=== PATIENT | male | born 1945 | race Caucasian/White ===

== ENCOUNTER 2016-11-08 08:43 | Outpatient (CLI) | payer BC, OTHER ==
[~2016-11-08 08:43] MED LIST: GLYB1TAB3 PO
[2016-11-08 09:45] LABS: THYROID STIMULATING HORMONE 12.371 mIU/mL (0.358-3.740)
[2016-11-08 11:21] LABS: BILIRUBIN,TOTAL 0.7 mg/dL (0.2-1.0); CREATININE 0.9 mg/dL (0.6-1.3); POTASSIUM 4.7 mmol/L (3.5-5.1); TOTAL PROTEIN, SERUM 7.2 g/dL (6.4-8.2)
[2016-11-09 08:06] LABS: ESTRADIOL 14.6 pg/mL (7.6-42.6); FOLLICLE STIMULATION HORMONE 8.2 mIU/mL (1.5-12.4); LUTEINIZING HORMONE 3.8 mIU/mL (1.7-8.6); PROLACTIN 7.3 ng/mL (4.0-15.2)
== END 2016-11-08 23:59 | disposition home or self-care (01) ==
LOC: LAB 08:43
DX: E11.65 Type 2 diabetes mellitus with hyperglycemia (principal); E29.1 Testicular hypofunction; E78.5 Hyperlipidemia, unspecified; E03.9 Hypothyroidism, unspecified
CPT/HCPCS: 36415; 82670; 83001; 83002; 84146; 84403; 84443

== ENCOUNTER 2017-01-24 08:10 | Outpatient (CLI) | payer BC, OTHER ==
[2017-01-24 10:21] LABS: CREATINE KINASE, TOTAL 93 U/L (39-308)
[2017-01-24 10:33] LABS: CARBON DIOXIDE 25 mmol/L (21-32); CHLORIDE 101 mmol/L (98-107); CREATININE 0.9 mg/dL (0.6-1.3); GLUCOSE 213 mg/dL (74-106); POTASSIUM 4.2 mmol/L (3.5-5.1); UREA NITROGEN, BLOOD 24 mg/dL (7-18)
[2017-01-24 10:34] LABS: ALANINE AMINOTRANSFERASE 20 U/L (16-63); ALKALINE PHOSPHATASE 82 U/L (50-136); ASPARTATE AMINOTRANSFERASE 9 U/L (15-37); BILIRUBIN,TOTAL 0.4 mg/dL (0.2-1.0); CHOLESTEROL 224 mg/dL (<200); HDL CHOLESTEROL 34 mg/dL (40-60); TOTAL PROTEIN, SERUM 7.7 g/dL (6.4-8.2); TRIGLYCERIDES 287 MG/DL (30-150)
[2017-01-24 11:20] LABS: THYROID STIMULATING HORMONE 6.193 mIU/mL (0.358-3.740)
[2017-01-27 15:11] LABS: INSULIN 7.8 uIU/mL (2.6-24.9)
== END 2017-01-24 23:59 | disposition home or self-care (01) ==
LOC: LAB 08:10
DX: E03.9 Hypothyroidism, unspecified (principal); E11.9 Type 2 diabetes mellitus without complications; E78.5 Hyperlipidemia, unspecified; M60.9 Myositis, unspecified
CPT/HCPCS: 36415; 83525; 84443

== ENCOUNTER 2017-03-14 09:46 | Outpatient (CLI) | payer BC, OTHER ==
[2017-03-14 10:42] LABS: *BILIRUBIN,URIN NEGATIVE (NEGATIVE); *BLOOD, URINE NEGATIVE (NEGATIVE); *CLARITY,URINE CLEAR (CLEAR); *COLOR,URINE YELLOW (YELLOW); *KETONES,URINE 1+ (NEGATIVE); *PROTEIN,URINE NEGATIVE (NEGATIVE); *UROBILINOGEN,URINE 0.2 E.U./dl (NORMAL); LEUKOCYTE ESTERASE ,URINE NEGATIVE (NEGATIVE); NITRITE, URINE NEGATIVE (NEGATIVE); PH,URINE 5.5 (5.0-8.0)
[2017-03-14 10:48] LABS: ALANINE AMINOTRANSFERASE 14 U/L (16-63); ALKALINE PHOSPHATASE 90 U/L (50-136); ASPARTATE AMINOTRANSFERASE < 5 U/L (15-37); BASOPHILS % (AUTO) 0.5 % (0.0-2.0); BILIRUBIN,TOTAL 0.4 mg/dL (0.2-1.0); CARBON DIOXIDE 27 mmol/L (21-32); CHLORIDE 102 mmol/L (98-107); CHOLESTEROL 229 mg/dL (<200); EOSINOPHILS # (AUTO) 0.2 K/uL (0.0-0.7); EOSINOPHILS % (AUTO) 3.3 % (0.0-7.0); GLUCOSE 211 mg/dL (74-106); HDL CHOLESTEROL 39 mg/dL (40-60); HEMATOCRIT 44.8 % (40-50); HEMOGLOBIN 15.3 G/DL (14.0-18.0); LYMPHOCYTES # (AUTO) 1.8 K/UL (0.8-4.8); LYMPHOCYTES % (AUTO) 24.6 % (20.5-51.5); MEAN CORPUSCULAR HEMOGLOBIN 29.6 UUG (27.0-31.0); MEAN CORPUSCULAR HGB CONC 34 g/dL (32.0-37.0); MONOCYTES # (AUTO) 0.5 K/UL (0.1-1.30); MONOCYTES % (AUTO) 6.8 % (0.0-11.0); NEUTROPHILS # (AUTO) 4.9 K/UL (1.8-8.9); NEUTROPHILS % (AUTO) 64.8 % (38.5-71.5); PLATELET COUNT (AUTO) 275 K/UL (150-450); POTASSIUM 4.6 mmol/L (3.5-5.1); RED BLOOD CELL COUNT(AUTO) 5.15 MIL/UL (4.7-6.1); TOTAL PROTEIN, SERUM 8.1 g/dL (6.4-8.2); TRIGLYCERIDES 295 MG/DL (30-150); UREA NITROGEN, BLOOD 21 mg/dL (7-18); URIC ACID 6.6 mg/dL (3.5-7.2); WHITE BLOOD COUNT (AUTO) 7.4 K/UL (4.0-11.2)
[2017-03-14 11:12] LABS: CREATINE KINASE, TOTAL 74 U/L (39-308)
[2017-03-14 11:28] LABS: *RHEUMATOID FACTOR SCREEN NEGATIVE (NEGATIVE)
[2017-03-14 13:27] LABS: UGLUCOSE 1+ (NEGATIVE)
[2017-03-14 13:30] LABS: BACTERIA,URINE NONE SEEN /HPF (NONE SEEN); RBC,URINE 0-3 /HPF (0-3); SQUAMOUS EPITHELIAL CELL,UR FEW /HPF (NONE SEEN); WBC,URINE 0-3 /HPF (0-3)
== END 2017-03-14 23:59 | disposition home or self-care (01) ==
LOC: LAB 09:46
PROVIDERS: ATTEND Legal Medicine
DX: E78.00 Pure hypercholesterolemia, unspecified (principal); M62.838 Other muscle spasm; M25.50 Pain in unspecified joint
CPT/HCPCS: 36415; 82085; 84550; 85025; 85651; 86038; 86140; 86430

== ENCOUNTER 2021-01-09 14:22 | Inpatient (IN) | payer MEDICARE ==
[~2021-01-09] VITALS: Ht 182.9 cm; Wt 83.9 kg
[2021-01-09] MEDS ORDERED: ACETAMINOPHEN 325 MG TABLET PO ONE (14:45)
[2021-01-09] MEDS ORDERED: ACETAMINOPHEN 325 MG TABLET ONE (14:56)
[2021-01-09] MEDS ORDERED: IV NORMAL SALINE 1000 ML BAG IV ONE (15:00)
[2021-01-09 15:01] LABS: HEMATOCRIT 42.1 % (36.7-47.1); MEAN CORPUSCULAR HEMOGLOBIN 29.1 uug (23.8-33.4); MEAN CORPUSCULAR VOLUME 88.3 fL (73.0-96.2); PLATELET COUNT (AUTO) 190 K/uL (152-348)
[2021-01-09 15:06] LABS: *BILIRUBIN,URIN NEGATIVE (NEGATIVE); *BLOOD, URINE NEGATIVE (NEGATIVE); *CLARITY,URINE CLEAR (CLEAR); *COLOR,URINE YELLOW (YELLOW); *KETONES,URINE TRACE (NEGATIVE); *UROBILINOGEN,URINE 0.2 E.U./dl (NORMAL); LEUKOCYTE ESTERASE ,URINE NEGATIVE (NEGATIVE); NITRITE, URINE NEGATIVE (NEGATIVE); UGLUCOSE 3+ (NEGATIVE)
[2021-01-09 15:08] LABS: POTASSIUM 4.6 mmol/L (3.5-5.1)
[2021-01-09] MEDS ORDERED: ASPI81TA31 PO (15:16)
[2021-01-09] MEDS ORDERED: CARV3.12 PO (15:16)
[2021-01-09 15:20] LABS: BILIRUBIN,DIRECT 0.2 mg/dL (0.0-0.2); TOTAL PROTEIN, SERUM 8.5 g/dL (6.4-8.2)
[2021-01-09] MEDS ORDERED: FUROSEMIDE 40 MG/4 ML VIAL IV ONE (15:45)
[2021-01-09] MEDS ORDERED: FUROSEMIDE 20 MG/2 ML VIAL ONE ×2 (15:51)
--- NOTE | 2021-01-09 15:51 | NUR ---
pt on the bed, deneis any sob or cp, breathing normally, ra 97% at this time, at bedside.
[2021-01-09] MEDS ORDERED: ACETAMINOPHEN 325 MG TABLET PO PRN (16:15)
[2021-01-09] MEDS ORDERED: PIPERACILLIN SODIUM/TAZOBACTAM 3.375 G in IV DEXTROSE 5% 50 ML IV SCH ×2 (16:15→19:42)
[2021-01-09] MEDS ORDERED: ONDANSETRON 4 MG/2 ML VIAL IV PRN (16:15)
[2021-01-09] MEDS ORDERED: Z GUARD REMEDY PASTE 57 GM TUBE TOP PRN (16:15)
[2021-01-09] MEDS ORDERED: MAGNESIUM HYDROXIDE 30 ML LIQUID UDC PO PRN (16:15)
[2021-01-09] MEDS ORDERED: PIPERACILLIN/TAZOBACTAM/D5W 50 ML IV ONE ×2 (17:33→21:15)
--- NOTE | 2021-01-09 19:05 | NUR ---
TRANSFERED PT TO FLOOR IN STABLE CONDITION, PT REMAINED CALM WITH NO SIGN OF DISTRESS THE WHOLE ER STAY. FAMILY MEMBER AT [facility].
[2021-01-09 20:00] VITALS: BP 99/47
[2021-01-09] MEDS ORDERED: DEXTROSE 50% 50 ML DISP.SYRIN IV PRN (20:30)
[2021-01-09] MEDS: HYDROCODONE/APAP 5-325MG TABLET PO PRN (21:03)
[2021-01-09] MEDS: HEPARIN SODIUM,PORCINE 5,000 UNITS/ML VIAL SQ SCH (21:04)
[2021-01-09] MEDS ORDERED: VANCOMYCIN IV 200 ML ONE (21:14)
[2021-01-09] MEDS ORDERED: SWABABLE VALVE TRANSFER SET EA MC ONE (21:20)
[2021-01-09] MEDS ORDERED: IV NORMAL SALINE 250 ML IV ONE (21:20)
[2021-01-09] MEDS ORDERED: IOHEXOL 300MG/ML 100 ML INFUS..BTL ONE (21:20)
--- NOTE | 2021-01-09 21:22 | NUR ---
Admitted patient to tele unit.DX of Sepsis.Alert x4. On Ra.No s/s of distress noted.Iv on Left ac 20g patent and intact.Patient c/o lower back pain .Repositioned patient .Medicated with [place] as ordered. Patient seen and examined by Abbie Maxwell with new orders received noted and carried out. CT thoracic spine /lumbar spine with contrast consent signed by . Patient was sent down then for CT STAT.
[2021-01-09] MEDS: BLOOD SUGAR DIAGNOSTIC 1 EACH STRIP VI SCH (21:26)
[2021-01-09] MEDS: INSULIN REGULAR, HUMAN 300 UNIT/3 ML VIAL SQ PRN (21:31)
[2021-01-09] MEDS: IV NS 1000 ML 1,000 ML IV PRN (22:07)
[2021-01-09] MEDS: VANCOMYCIN IV 1,000 MG in IV DEXTROSE 5% 250 ML IV SCH (22:08)
[2021-01-09] MEDS: PIPERACILLIN SODIUM/TAZOBACTAM 3.375 G in IV DEXTROSE 5% 50 ML IV SCH (23:29)
[2021-01-10 02:18] VITALS: BP 123/59
[2021-01-10] MEDS ORDERED: PIPERACILLIN/TAZOBACTAM/D5W 50 ML IV ONE (04:26)
[2021-01-10 04:45] VITALS: BP 117/53
[2021-01-10] MEDS: PIPERACILLIN SODIUM/TAZOBACTAM 3.375 G in IV DEXTROSE 5% 50 ML IV SCH ×4 (05:16→22:17)
[2021-01-10 06:35] LABS: HEMATOCRIT 34.5 % (36.7-47.1); MEAN CORPUSCULAR HEMOGLOBIN 29.2 uug (23.8-33.4); MEAN CORPUSCULAR VOLUME 88.2 fL (73.0-96.2); PLATELET COUNT (AUTO) 148 K/uL (152-348)
[2021-01-10] MEDS: BLOOD SUGAR DIAGNOSTIC 1 EACH STRIP VI SCH ×4 (06:35→20:20)
--- NOTE | 2021-01-10 06:41 | NUR ---
Patient afebrile through out the night in no acute distress noted. Administered IV ATb as ordered. No a/r noted . VSS .All needs anticipated and met accordingly. Will endorse to oncoming shift.
[2021-01-10] MEDS: HYDROCODONE/APAP 5-325MG TABLET PO PRN ×2 (06:53→13:24)
[2021-01-10 06:56] LABS: PHOSPHOROUS 3.5 mg/dL (2.5-4.9); POTASSIUM 3.8 mmol/L (3.5-5.1)
--- NOTE | 2021-01-10 07:15 | NUR ---
received patient in bed sleeping in stable condition. no s/s of any pain, SOB or discomfort noted at this time. call light and belongings within reach. safety precautions in place. will continue to monitor.
[2021-01-10] MEDS: VANCOMYCIN IV 1,000 MG in IV DEXTROSE 5% 250 ML IV SCH ×2 (08:32→20:08)
[2021-01-10] MEDS: HEPARIN SODIUM,PORCINE 5,000 UNITS/ML VIAL SQ SCH ×2 (08:33→20:11)
[2021-01-10] MEDS: INSULIN REGULAR, HUMAN 300 UNIT/3 ML VIAL SQ PRN ×4 (08:35→20:21)
[2021-01-10 11:31] VITALS: BP 119/59
[2021-01-10] MEDS: IBUPROFEN 400 MG TABLET PO PRN ×2 (11:31→20:34)
--- NOTE | 2021-01-10 14:10 | NUR ---
TEXTED DR. RODRIGUES FOR MRI APPROVAL.
--- NOTE | 2021-01-10 17:30 | NUR ---
patient picked up by ambulance for MRI at [place], left in stable condition, vitals stable. will report to oncoming shift.
[2021-01-10 21:38] VITALS: BP 103/43
[2021-01-10] MEDS: IV NS 1000 ML 1,000 ML IV PRN (22:17)
[2021-01-11] VITALS: BP 109/46
--- NOTE | 2021-01-11 01:58 | NUR ---
[facility] called with Blood Culture results - "Gram Positive Cocci in Clusters Seen on Gram Stain"
[2021-01-11 04:00] VITALS: BP 119/61
[2021-01-11] MEDS: PIPERACILLIN SODIUM/TAZOBACTAM 3.375 G in IV DEXTROSE 5% 50 ML IV SCH ×2 (04:32→10:56)
[2021-01-11 06:43] LABS: HEMATOCRIT 34.6 % (36.7-47.1); MEAN CORPUSCULAR HEMOGLOBIN 30.1 uug (23.8-33.4); MEAN CORPUSCULAR VOLUME 87.7 fL (73.0-96.2); PLATELET COUNT (AUTO) 138 K/uL (152-348)
[2021-01-11 07:01] LABS: MAGNESIUM 2.2 mg/dL (1.8-2.4); PHOSPHOROUS 2.8 mg/dL (2.5-4.9); POTASSIUM 3.7 mmol/L (3.5-5.1)
--- NOTE | 2021-01-11 08:00 | NUR ---
RECEIVED CHANGE OF SHIFT REPORT, PT RESTING IN BED, C/O BACK PAIN AND SEPSIS. PT A/OX4, ON TELE MONITOR NSR. PT ON ROOM AIR, NO SIGNS OF DISTRESS, AMBULATORY WITH ASSIST, URINAL AT BEDSIDE. IV ACCESS ON THE LEFT FA 18G INFUSING NS AT 75. WBC 10.5, TRENDING DOWN, BED LOW AND LOCKED, CALL LIGHT WITHIN REACH, WILL CONTINUE WITH PLAN OF CARE.
[2021-01-11] MEDS: HEPARIN SODIUM,PORCINE 5,000 UNITS/ML VIAL SQ SCH ×2 (08:34→20:56)
[2021-01-11] MEDS: HYDROCODONE/APAP 5-325MG TABLET PO PRN ×3 (08:36→21:37)
[2021-01-11] MEDS: INSULIN REGULAR, HUMAN 300 UNIT/3 ML VIAL SQ PRN ×4 (08:48→20:56)
[2021-01-11] MEDS: BLOOD SUGAR DIAGNOSTIC 1 EACH STRIP VI SCH ×4 (08:49→20:55)
[2021-01-11] MEDS: IBUPROFEN 400 MG TABLET PO PRN (10:56)
[2021-01-11 11:54] VITALS: BP 112/57
[2021-01-11] MEDS: VANCOMYCIN IV 1,000 MG in IV DEXTROSE 5% 250 ML IV SCH ×2 (12:25→21:30)
[2021-01-11] MEDS ORDERED: GADOTERATE MEGLUMINE 10 MMOL/20 ML VIAL IV ONE (13:46)
[2021-01-11 16:10] VITALS: BP 106/55
--- NOTE | 2021-01-11 16:45 | NUR ---
Patient received mid-shift. Patient is in bed, alert and oriented x4 and is NSR on monitor. Patient on RA with no SOB or difficulties breathing. No acute distress noted at this time. Spouse is at bedside. Both patient and spouse awaiting pending discharge orders from Dr. Maxwell. IV on left FA is patent with IVF running at 75mL as ordered. Fall precautions in place. Call light and personal belongings within easy reach. Will continue to monitor.
[2021-01-11] MEDS ORDERED: VANC1PLA9 IV (17:19)
[2021-01-11] MEDS ORDERED: IBUP-1953 PO (17:19)
--- NOTE | 2021-01-11 17:58 | NUR ---
Patient is going to be discharged after 2200 dose of Vancomycin as per MD orders. Patient and family express understanding. Patient states he does not want his insulin with BS of 219 because he will not be eating or drinking anything for dinner. He has no c/o pain or discomforts at this time. No acute distress noted. Personal belongings and call light within easy reach. Will continue to monitor.
--- NOTE | 2021-01-11 19:03 | NUR ---
Echocardiogram cannot be done today and Dr. Maxwell informed. Dr. Maxwell states that she wants the echocardiogram done before discharge, but patient states that he will not stay and chooses to go AMA even without the 2200 Vancomycin. Patient educated on importance of getting the echocardiogram, but patient still wants to leave AMA. notified.
--- NOTE | 2021-01-11 19:30 | NUR ---
Report received. Brando RN and this RN at bedside. Patient AAO; DC plans discussed. Patient verbalized understanding. Addendum: 01/11/21 at 2220 by REGINO GIBSON RN Amended: Links added. Addendum: 01/11/21 at 2221 by REGINO GIBSON RN Amended: Links added.
--- NOTE | 2021-01-11 19:31 | NUR ---
As per Dr. Maxwell, new plan is for patient to receive echocardiogram outpatient. Patient will not be leaving AMA and original plan to receive vancomycin at 2200 and then discharge will be followed. Endorsed to oncoming PM shift.
[2021-01-11 20:05] VITALS: BP 119/57
--- NOTE | 2021-01-11 20:56 | NUR ---
Patient's and daughter Korina at bedside. Meds given. Addendum: 01/11/21 at 2221 by RGEINO GIBSON RN Amended: Links added.
--- NOTE | 2021-01-11 22:00 | NUR ---
DC instructions and packet given to patient's daughter Korina; verbalized understanding.
[2021-01-11] MEDS ORDERED: VANCOMYCIN IV 1,250 MG in IV DEXTROSE 5% 250 ML IV SCH (23:00)
--- NOTE | 2021-01-11 23:10 | NUR ---
Vancomycin completed. Patient DC home per wheelchair accompanied by and daughter.
== END 2021-01-11 23:34 | disposition home health service (06) | DRG 871 ==
LOC: ER 14:22 → TELE3 18:55
PROVIDERS: ADMIT Nurse Practitioner Acute Care; ATTEND Nurse Practitioner Acute Care
DX: A41.01 Sepsis due to Methicillin susceptible Staphylococcus aureus (principal); I50.33 Acute on chronic diastolic (congestive) heart failure; N13.30 Unspecified hydronephrosis; N39.0 Urinary tract infection, site not specified; M48.07 Spinal stenosis, lumbosacral region; M51.26 Other intervertebral disc displacement, lumbar region; K80.20 Calculus of gallbladder without cholecystitis without obstruction; E11.65 Type 2 diabetes mellitus with hyperglycemia; M51.27 Other intervertebral disc displacement, lumbosacral region; M48.26 Kissing spine, lumbar region; M48.061 Spinal stenosis, lumbar region without neurogenic claudication; D69.6 Thrombocytopenia, unspecified; M51.37 Other intervertebral disc degeneration, lumbosacral region; I11.0 Hypertensive heart disease with heart failure; B95.1 Streptococcus, group B, as the cause of diseases classified elsewhere; I25.10 Atherosclerotic heart disease of native coronary artery without angina pectoris; I45.10 Unspecified right bundle-branch block; R91.8 Other nonspecific abnormal finding of lung field; M10.9 Gout, unspecified; Z95.1 Presence of aortocoronary bypass graft; Z79.82 Long term (current) use of aspirin; Z79.84 Long term (current) use of oral hypoglycemic drugs; R00.0 Tachycardia, unspecified; Z20.822 Contact with and (suspected) exposure to COVID-19; M51.86 Other intervertebral disc disorders, lumbar region; M51.87 Other intervertebral disc disorders, lumbosacral region; N32.89 Other specified disorders of bladder
CPT/HCPCS: 36415; 70030-TC; 71045; 71250; 72158; 83605; 83735; 84100; 84153; 85025; 85730; 86140; 86803; 87040; 87077; 87086; 87806; 93005; A4663; A9575; G0378; J1644; J1815; J1940; J2543; J3370; J7030; J7050; J7060; Q9967

== ENCOUNTER 2021-02-08 20:50 | Inpatient (IN) | payer MEDICARE ==
[~2021-02-08] VITALS: Ht 185.4 cm; Wt 83.9 kg
[~2021-02-08 20:50] MED LIST changes: +ASPI81TA31 PO; +CARV3.12 PO; +IBUP-1953 PO; +VANC1PLA9 IV
--- NOTE | 2021-02-08 21:28 | NUR ---
Patient sent here by Dr Mays for eval of back pain. Current PL:08/08. A/O x4 no SOB or labored breathing, denies CP/pressure. at bedside.
--- NOTE | 2021-02-08 21:30 | NUR ---
Dr. Ramírez at bedside, MSE in progress.
[2021-02-08] MEDS ORDERED: MORPHINE SULFATE 4 MG/1 ML DISP.SYRIN IV ONE (22:45)
[2021-02-08] MEDS ORDERED: MORPHINE SULFATE 4 MG/1 ML DISP.SYRIN ONE (22:57)
[2021-02-08 22:58] LABS: HEMATOCRIT 32.6 % (36.7-47.1); MEAN CORPUSCULAR HEMOGLOBIN 28.3 uug (23.8-33.4); MEAN CORPUSCULAR VOLUME 85.1 fL (73.0-96.2); PLATELET COUNT (AUTO) 276 K/uL (152-348)
[2021-02-08 23:07] LABS: BILIRUBIN,DIRECT 0.2 mg/dL (0.0-0.2); BILIRUBIN,TOTAL 0.4 mg/dL (0.2-1.0); CREATININE 0.9 mg/dL (0.6-1.3); POTASSIUM 4.2 mmol/L (3.5-5.1); TOTAL PROTEIN, SERUM 7.7 g/dL (6.4-8.2)
--- NOTE | 2021-02-09 00:02 | NUR ---
Dr Ramírez speaking with neurological surgeon consult, Jerman Rowe.
--- NOTE | 2021-02-09 00:14 | NUR ---
Paged Epic panel carton filling machine operator. Waiting for call back.
[2021-02-09] MEDS ORDERED: HYDROMORPHONE 1 MG/1 ML DISP.SYRIN IV ONE ×3 (00:15→17:15)
--- NOTE | 2021-02-09 00:20 | NUR ---
Patient is resting comfortably in bed with eyes closed. Breathing even and unlabored. at bedside.
[2021-02-09] MEDS ORDERED: HYDROMORPHONE 1 MG/1 ML DISP.SYRIN ONE (00:39)
--- NOTE | 2021-02-09 01:22 | NUR ---
GAVE REPORT TO
--- NOTE | 2021-02-09 02:04 | NUR ---
Pt. admitted to Med Surg room 302 , under care of Dx: intractable back pain Belongs List completed
[2021-02-09] MEDS ORDERED: ONDANSETRON 4 MG/2 ML VIAL IV PRN (02:30)
[2021-02-09] MEDS ORDERED: ACETAMINOPHEN 325 MG TABLET PO PRN (02:30)
[2021-02-09] MEDS: MORPHINE SULFATE 2 MG/1 ML DISP.SYRIN IV PRN ×2 (02:35→08:38)
[2021-02-09 02:43] VITALS: BP 185/81
--- NOTE | 2021-02-09 02:53 | NUR ---
Admitted to room 302; not in any acute distress; partial orders received fr Dr Ramirez; pt prefers to sleep while sitting on chair; pain management with Morphine IV; will continue to monitor; plan of care explained.
[2021-02-09 04:24] VITALS: BP 170/87
[2021-02-09] MEDS ORDERED: TEMAZEPAM 15 MG CAPSULE PO PRN (06:15)
[2021-02-09] MEDS: hydrALAZINE HCL 25 MG TABLET PO PRN (06:57)
[2021-02-09] MEDS: PANTOPRAZOLE SODIUM 40 MG TABLET.DR PO SCH (06:57)
[2021-02-09] MEDS: CARVEDILOL 3.125 MG TABLET PO SCH ×2 (06:58→19:59)
--- NOTE | 2021-02-09 07:31 | NUR ---
received patient awake in stable condition, no SOB noted at this time patient in room air. on cont. pain management. call light within reach. will continue to monitor.
[2021-02-09 07:47] LABS: HEMATOCRIT 32.1 % (36.7-47.1); MEAN CORPUSCULAR HEMOGLOBIN 28.5 uug (23.8-33.4); MEAN CORPUSCULAR VOLUME 84.9 fL (73.0-96.2); PLATELET COUNT (AUTO) 289 K/uL (152-348)
[2021-02-09 08:11] LABS: CREATININE 0.7 mg/dL (0.6-1.3); MAGNESIUM 1.8 mg/dL (1.8-2.4); PHOSPHOROUS 3.3 mg/dL (2.5-4.9); POTASSIUM 4.4 mmol/L (3.5-5.1)
[2021-02-09] MEDS: ASPIRIN 81 MG TAB.CHEW PO SCH (08:38)
[2021-02-09] MEDS ORDERED: VANCOMYCIN IV 1,250 MG in IV DEXTROSE 5% 250 ML IV SCH (09:00)
[2021-02-09] MEDS: PIPERACILLIN SODIUM/TAZOBACTAM 3.375 G in IV DEXTROSE 5% 50 ML IV SCH ×3 (11:05→21:22)
[2021-02-09 12:00] VITALS: BP 133/55
[2021-02-09] MEDS ORDERED: PIPERACILLIN SODIUM/TAZOBACTAM 3.375 G in IV DEXTROSE 5% 50 ML IV SCH (14:00)
[2021-02-09] MEDS: VANCOMYCIN IV 1,250 MG in IV DEXTROSE 5% 250 ML IV SCH (17:09)
--- NOTE | 2021-02-09 19:08 | NUR ---
PATIENT IN BED IN STABLE CONDITION, FAMILY AT BEDSIDE. ON CONT PAIN MANAGEMENT. NO SOB, OR DISCOMFORT AT THIS TIME. CALL LIGHT WITHIN REACH, IV INTACT AND PATENT. WILL REPORT TO ONCOMING SHIFT.
[2021-02-09 20:03] VITALS: BP 147/76
[2021-02-09] MEDS ORDERED: DEXTROSE 50% 50 ML DISP.SYRIN IV PRN (21:00)
[2021-02-09] MEDS: BLOOD SUGAR DIAGNOSTIC 1 EACH STRIP VI SCH (21:21)
[2021-02-09] MEDS: HYDROMORPHONE 1 MG/1 ML DISP.SYRIN IV PRN (21:23)
[2021-02-09] MEDS: INSULIN REGULAR, HUMAN 300 UNIT/3 ML VIAL SQ PRN (21:25)
[2021-02-10] MEDS: HYDROMORPHONE 1 MG/1 ML DISP.SYRIN IV PRN ×5 (01:26→20:15)
[2021-02-10 04:03] VITALS: BP 128/57
[2021-02-10] MEDS: PIPERACILLIN SODIUM/TAZOBACTAM 3.375 G in IV DEXTROSE 5% 50 ML IV SCH ×3 (05:19→21:41)
[2021-02-10] MEDS: VANCOMYCIN IV 1,250 MG in IV DEXTROSE 5% 250 ML IV SCH ×2 (05:19→18:07)
[2021-02-10] MEDS: PANTOPRAZOLE SODIUM 40 MG TABLET.DR PO SCH (06:10)
[2021-02-10] MEDS: INSULIN REGULAR, HUMAN 300 UNIT/3 ML VIAL SQ PRN ×4 (06:42→20:11)
[2021-02-10] MEDS: BLOOD SUGAR DIAGNOSTIC 1 EACH STRIP VI SCH ×4 (06:42→20:07)
[2021-02-10 08:00] VITALS: BP 118/54
[2021-02-10 08:22] LABS: HEMATOCRIT 31.1 % (36.7-47.1); MEAN CORPUSCULAR HEMOGLOBIN 28.1 uug (23.8-33.4); MEAN CORPUSCULAR VOLUME 84.4 fL (73.0-96.2); PLATELET COUNT (AUTO) 290 K/uL (152-348)
[2021-02-10] MEDS: ASPIRIN 81 MG TAB.CHEW PO SCH (08:26)
[2021-02-10] MEDS: CARVEDILOL 3.125 MG TABLET PO SCH ×2 (08:26→20:12)
[2021-02-10 08:38] LABS: CREATININE 0.7 mg/dL (0.6-1.3); POTASSIUM 3.8 mmol/L (3.5-5.1)
[2021-02-10 11:34] VITALS: BP 150/68
[2021-02-10 15:11] VITALS: BP 115/64
[2021-02-10] MEDS ORDERED: FUROSEMIDE 40 MG/4 ML VIAL IV ONE (15:15)
--- NOTE | 2021-02-10 19:45 | NUR ---
Received pt sitting on a chair, A&0x3, verbally responsive, able to make needs known. No signs of acute distress noted. IV access intact and patent. Discussed plan of care with pt and family at bedside. Safety measures initiated, call light within reach.
[2021-02-10 20:00] VITALS: BP 133/59
[2021-02-11] MEDS: HYDROMORPHONE 1 MG/1 ML DISP.SYRIN IV PRN ×8 (00:11→23:20)
[2021-02-11 04:00] VITALS: BP 132/72
[2021-02-11 04:50] VITALS: BP 178/85
[2021-02-11] MEDS: PIPERACILLIN SODIUM/TAZOBACTAM 3.375 G in IV DEXTROSE 5% 50 ML IV SCH ×2 (05:42→13:58)
--- NOTE | 2021-02-11 06:26 | NUR ---
Pt slept intermittently, no significant change in condition noted. Tolerated due PO and IV medications, PRN pain medication administered as needed. Assistance provided when ambulating, safety measures maintained at all times. all needs attended to and met.
[2021-02-11] MEDS: BLOOD SUGAR DIAGNOSTIC 1 EACH STRIP VI SCH ×4 (06:49→20:37)
[2021-02-11] MEDS: PANTOPRAZOLE SODIUM 40 MG TABLET.DR PO SCH (06:49)
[2021-02-11 07:17] LABS: HEMATOCRIT 30.7 % (36.7-47.1); MEAN CORPUSCULAR HEMOGLOBIN 28.6 uug (23.8-33.4); MEAN CORPUSCULAR VOLUME 84.8 fL (73.0-96.2); PLATELET COUNT (AUTO) 311 K/uL (152-348)
--- NOTE | 2021-02-11 07:30 | NUR ---
Received report from LAUREN Cardenas. All questions, comments, and concerns were addressed. Received patient awake, alert and oriented x4. Sitting in bedside chair, reporting severe pain 10/10 in lower back. Patient reporting that Dilaudid 1 mg Q4 PRN IV is ineffective. Dr. Antony gave orders to change to Q3 PRN. Orders placed.
[2021-02-11 07:51] LABS: CREATININE 0.9 mg/dL (0.6-1.3); MAGNESIUM 1.9 mg/dL (1.8-2.4); PHOSPHOROUS 4.3 mg/dL (2.5-4.9); POTASSIUM 3.8 mmol/L (3.5-5.1); VANCOMYCIN,TROUGH 15.4 ug/mL (12.0-20.0)
[2021-02-11 07:58] LABS: THYROID STIMULATING HORMONE 1.56 mIU/mL (0.358-3.740)
[2021-02-11] MEDS: ASPIRIN 81 MG TAB.CHEW PO SCH (08:07)
[2021-02-11] MEDS: CARVEDILOL 3.125 MG TABLET PO SCH ×2 (08:12→20:34)
[2021-02-11] MEDS: VANCOMYCIN IV 1,250 MG in IV DEXTROSE 5% 250 ML IV SCH ×2 (08:15→20:33)
[2021-02-11 08:28] LABS: URIC ACID 3.2 mg/dL (3.5-7.2)
[2021-02-11] MEDS: INSULIN REGULAR, HUMAN 300 UNIT/3 ML VIAL SQ PRN ×3 (11:56→20:48)
[2021-02-11 12:00] VITALS: BP 115/61
--- NOTE | 2021-02-11 12:42 | NUR ---
Patient is alert and oriented. Patient is using a FWW to ambulate, unsteady gait due to severe pain in lower back. Patient administered Dilaudid 1 mg IV at 0808 and 1128 for severe pain 04/07. Patient reports that the medication is effective for about an hour then stops working. Respirations are even and unlabored, no signs of respiratory distress noted. Patient is on room air. Patient able to perform self care and ADL's independently. at bedside. Patient tolerates food and fluids. Patient is compliant with medications. Noted with Midline in MY and peripheral IV in left forearm. Both are patent. No pain, redness, swelling at IV sites. Patient receiving IV ATB therapy, tolerating well.
--- NOTE | 2021-02-11 12:48 | NUR ---
BS 217. 4 units insulin given per sliding scale. Tolerated well. Patient able to tolerate food and fluids. Provided with lunch tray.
[2021-02-11 16:00] VITALS: BP 121/63
--- NOTE | 2021-02-11 17:10 | NUR ---
BS 283. 6 units insulin given per sliding scale. Provided with dinner tray. Patient able to tolerate food and fluids.
--- NOTE | 2021-02-11 19:45 | NUR ---
PATIENT ALERT ORIENTED NO SOB NO CHEST PAIN, CONT PAIN MANAGEMENT DUE LOWER BACK PAIN, PATIENT PREFERRED TO STAY SEATED ON CHAIR TO SLEEP, STATED IT'S TO STAY LYING DOWN, IT CAUSE MORE PAIN, AND ITS HARD FOR HIM TO GET OUT OF BED, V/S STABLE, FAMILY AT BEDSIDE. CONT TO MONITOR.
[2021-02-11 20:00] VITALS: BP 134/62
[2021-02-11] MEDS: IV 0.9% SODIUM CHLORID+ 20 KCL 1,000 ML IV PRN (21:37)
[2021-02-11] MEDS: CEFTRIAXONE 2 G in IV DEXTROSE 5% 100 ML IV SCH (22:26)
[2021-02-12] MEDS: HYDROMORPHONE 1 MG/1 ML DISP.SYRIN IV PRN ×5 (02:35→14:31)
[2021-02-12 04:06] VITALS: BP 149/77
--- NOTE | 2021-02-12 05:48 | NUR ---
PATIENT ALERT ORIENTED, CONT ON PAIN MANAGEMENT DUE BACK PAIN, USES URINAL FOR URINATION, OR GOES TO TOILET WITH ASSIST FOR ELIMINATIONS, V/S STABLE, CONT TO MONITOR.
[2021-02-12] MEDS: PANTOPRAZOLE SODIUM 40 MG TABLET.DR PO SCH (06:29)
[2021-02-12] MEDS: BLOOD SUGAR DIAGNOSTIC 1 EACH STRIP VI SCH ×4 (06:30→20:41)
[2021-02-12] MEDS: INSULIN REGULAR, HUMAN 300 UNIT/3 ML VIAL SQ PRN ×4 (08:18→20:49)
--- NOTE | 2021-02-12 08:27 | NUR ---
RECEIVED PATIENT SITTING UP ON TAT THE EDGE OF THE BED AWAKE ALERT AND ORIENTED WITH IVF IN PROGRESS ORDERED WITH NO S/S OF INFILTERATION ON SITE ON ROOM AIR WITH NO SHORTNESS OF BREATH CALL LIGHTS AND PERSONAL BELONGINGS ARE WITHIN EASY REACH MADE COMFORTABLE WILL CONTINUE TO OBSERVE.
[2021-02-12] MEDS: ASPIRIN 81 MG TAB.CHEW PO SCH (09:20)
[2021-02-12] MEDS: VANCOMYCIN IV 1,250 MG in IV DEXTROSE 5% 250 ML IV SCH (09:21)
[2021-02-12] MEDS: CARVEDILOL 3.125 MG TABLET PO SCH ×2 (09:21→20:41)
[2021-02-12 10:56] VITALS: BP 127/64
--- NOTE | 2021-02-12 11:40 | NUR ---
PATIENT SEEN BY DR COOK NEURO SURGEON AT THE BEDSIDE AND SPOKE WITH PATIENT AND HIS EXPLAINED THAT HE WILL BE OPERATING SPINAL SURGERY ON THE PATIENT TOMORROW AND HE STATED WILL PUT IN ORDERS.PATIENT AND HIS EXPRESSED UNDERSTANDING OF THE PROPOSED SURGERY.
--- NOTE | 2021-02-12 12:30 | NUR ---
PATIENT SEEN AND EXAMINED BY KATJA LOZANO [facility] PROVIDER WITH NO NEW ORDERS AT THIS TIME.
--- NOTE | 2021-02-12 13:09 | NUR ---
ECHO COMPLETED ORDERED AND ITS 50-55 PERCENT EF.
--- NOTE | 2021-02-12 15:07 | NUR ---
SITTING UP ON THE CHAIR IN HIS ROOM DILAUDID WAS ADMINISTERED AT 1431 AND HE STATED HELPFUL.
--- NOTE | 2021-02-12 16:45 | NUR ---
PATIENT COMPLAINING OF SEVERE PAIN STATED THAT DILAUDID ORDERED WAS NOT EFFECTIVE STATED THAT HE WAS TAKING PERCOCET AT HOME SPOKE WITH KATJA Caro WITH NEW ORDERS.
[2021-02-12] MEDS: OXYCODONE/APAP 5-325 MG TABLET PO SCH ×2 (16:50→21:00)
[2021-02-12] MEDS: HYDROMORPHONE 2 MG/1 ML DISP.SYRIN IV PRN ×3 (17:23→23:20)
--- NOTE | 2021-02-12 18:15 | NUR ---
PATIENT IS RESTING SITTING UP ON THE CHAIR STATED PAIN MEDICATION IS EFFECTIVE ORDERED MADE COMFORTABLE WILL CONTINUE TO OBSERVE.
--- NOTE | 2021-02-12 18:45 | NUR ---
PRE OP TEACHING PATIENT INSTRUCTED ON BEING NOTHING BY MOUTH AFTER MID NIGHT WILL NEED EKG DONE TOMORROW AND THE NEWSPAPER OR PERIODICAL EDITOR WILL SEE HIM TOMORROW AND WILL REVIEW THE ECHO AND THE EKG FOR CARDIAC CLEARANCE FOR SURGERY AND HE EXPRESSED UNDERSTANDING.
[2021-02-12 20:00] VITALS: BP 137/61
[2021-02-12] MEDS: IV 0.9% SODIUM CHLORID+ 20 KCL 1,000 ML IV PRN (20:39)
[2021-02-12] MEDS: CEFTRIAXONE 2 G in IV DEXTROSE 5% 100 ML IV SCH (20:40)
[2021-02-12] MEDS ORDERED: INSULIN REGULAR, HUMAN 300 UNIT/3 ML VIAL SQ PRN (23:45)
[2021-02-12] MEDS ORDERED: DEXTROSE 50% 50 ML DISP.SYRIN IV PRN (23:45)
--- NOTE | 2021-02-13 | NUR ---
Pt rested in between care; pain management with dilaudid; assisted with needs; family at bedside; instructed to be NPO fr midnight; report given to Nurse Peterson who will assume care;
--- NOTE | 2021-02-13 02:26 | NUR ---
RECD PT IN BED,RESTING QUIETLY. NO ACUTE DISTRESS NOTED.NPO MAINTAINED AND OBSERVED, FOR LAMINECTOMY IN AM, CONSENT WILL BE SIGNED IN AM.
[2021-02-13] MEDS: HYDROMORPHONE 2 MG/1 ML DISP.SYRIN IV PRN ×5 (03:56→23:51)
--- NOTE | 2021-02-13 03:56 | NUR ---
MEDICATED WITH DILAUDID 2 MG IV FOR BACK PAIN,RELIEF AFFORDED.
[2021-02-13 05:11] VITALS: BP 142/77
[2021-02-13] MEDS: BLOOD SUGAR DIAGNOSTIC 1 EACH STRIP VI SCH ×4 (06:27→20:19)
[2021-02-13 06:53] LABS: CREATININE 0.8 mg/dL (0.6-1.3); POTASSIUM 4.1 mmol/L (3.5-5.1)
[2021-02-13] MEDS: PANTOPRAZOLE SODIUM 40 MG TABLET.DR PO SCH (07:30)
--- NOTE | 2021-02-13 08:00 | NUR ---
PT SITTING IN CHAIR RELAXING. PT A/OX4, ON ROOM AIR, NO SIGNS OF DISTRESS, REPORTS PAIN 10/10, MEDICATION GIVEN ORDERED. PT IS NPO PENDING SURGERY, CONSENT FORM SIGNED AND WITNESSED. PT HAS IV ON THE LEFT AC SALINE LOCK, AND MIDLINE ON THE RIGHT UPPER ARM. PT TO BE PICKED UP AT 1030 FOR SURGERY. WILL CONTINUE TO MONITOR.
[2021-02-13 08:05] VITALS: BP 149/71
[2021-02-13] MEDS: CARVEDILOL 3.125 MG TABLET PO SCH ×2 (08:22→20:12)
[2021-02-13] MEDS: ASPIRIN 81 MG TAB.CHEW PO SCH (08:31)
[2021-02-13] MEDS: OXYCODONE/APAP 5-325 MG TABLET PO SCH ×2 (08:31→20:11)
[2021-02-13 09:09] LABS: HEMATOCRIT 32.4 % (36.7-47.1); MEAN CORPUSCULAR HEMOGLOBIN 28.8 uug (23.8-33.4); MEAN CORPUSCULAR VOLUME 84.5 fL (73.0-96.2); PLATELET COUNT (AUTO) 363 K/uL (152-348)
--- NOTE | 2021-02-13 10:50 | NUR ---
PT WENT DOWN FOR SURGERY.
[2021-02-13] MEDS ORDERED: FENTANYL CITRATE 250 MCG/5 ML AMPUL ONE (10:56)
[2021-02-13] MEDS ORDERED: MIDAZOLAM HCL 2 MG/2 ML VIAL ONE (10:56)
[2021-02-13] MEDS ORDERED: ROCURONIUM BROMIDE 50 MG/5 ML VIAL ONE (10:57)
[2021-02-13] MEDS ORDERED: HYDROMORPHONE 2 MG/1 ML DISP.SYRIN ONE (10:57)
[2021-02-13] MEDS ORDERED: LIDOCAINE 1%-EPI 1:100,000 20 ML VIAL ONE (11:25)
[2021-02-13] MEDS ORDERED: ONDANSETRON 4 MG/2 ML VIAL IV ONE (13:06)
[2021-02-13] MEDS ORDERED: CEFAZOLIN 1 G VIAL IV ONE (13:06)
[2021-02-13] MEDS ORDERED: GLYCOPYRROLATE 0.2 MG/ML VIAL IV ONE (13:06)
[2021-02-13] MEDS ORDERED: NEOSTIGMINE METHYLSULFATE 10 MG/10 ML VIAL IV ONE (13:06)
[2021-02-13] MEDS ORDERED: PROPOFOL 200 MG/20 ML BOTTLE IV ONE (13:06)
[2021-02-13] MEDS ORDERED: SEVOFLURANE 250 ML BOTTLE IH ONE (13:06)
[2021-02-13] MEDS ORDERED: METOCLOPRAMIDE HCL 10 MG/2 ML VIAL IV ONE (13:06)
[2021-02-13] MEDS ORDERED: HYDROMORPHONE 1 MG/1 ML DISP.SYRIN ONE (13:51)
[2021-02-13] MEDS ORDERED: ONDANSETRON 4 MG/2 ML VIAL ONE (13:51)
[2021-02-13] MEDS ORDERED: FENTANYL CITRATE 100 MCG/2 ML AMPUL ONE (14:37)
--- NOTE | 2021-02-13 15:20 | NUR ---
PT BACK FROM SURGERY, ORDERS TO RESUME REGULAR DIET, AND RAISE HOB TOLERATED. PT REPORTS PAIN ON THE LOWER LEGS, PEDAL PULSES FOUND VIA DOPPLER PER OR NURSE. WILL CONTINUE TO MONITOR.
[2021-02-13 15:23] VITALS: BP 168/80
[2021-02-13] MEDS ORDERED: DEXTROSE 50% 50 ML DISP.SYRIN IV PRN (16:14)
[2021-02-13] MEDS: INSULIN REGULAR, HUMAN 300 UNIT/3 ML VIAL SQ PRN ×2 (17:19→20:21)
[2021-02-13 20:00] VITALS: BP 164/74
[2021-02-13] MEDS: CEFTRIAXONE 2 G in IV DEXTROSE 5% 100 ML IV SCH (20:11)
[2021-02-13] MEDS: IV 0.9% SODIUM CHLORID+ 20 KCL 1,000 ML IV PRN (21:52)
[2021-02-13] MEDS ORDERED: MAGNESIUM HYDROXIDE 30 ML LIQUID UDC PO PRN (22:00)
--- NOTE | 2021-02-13 22:05 | NUR ---
Pt informed this nurse that he was unable to urinate since after his surgery today. Bladder scan done and 1367cc was found. Sujey Rivera notified with orders for indwelling catheter at this time. Patient tolerated procedure well. Garces in place and draining clear yellow urine.
--- NOTE | 2021-02-14 00:46 | NUR ---
Pt wanted chen removed.Educated patient on importance of chen at this time due to him retaining urine. Pt still requested for chen to be removed. Catheter removed with no complications. Will continue to monitor urine output. Dr. Reeves notified.
--- NOTE | 2021-02-14 00:58 | NUR ---
Pt stated he has not had a bowel movement in 5 days. Got orders for prn MOM and scheduled Miralax. Pt stated that he will wait till tomorrow to take the medication.
[2021-02-14] MEDS: HYDROMORPHONE 2 MG/1 ML DISP.SYRIN IV PRN ×3 (03:07→10:24)
[2021-02-14 04:00] VITALS: BP 146/58
--- NOTE | 2021-02-14 05:16 | NUR ---
Pt slept intermittently throughout the night. Pain controlled with Dilaudid, tolerated well. Bladder scan done again because patient reported not being able to urinate. 470cc found. Pt informed that we may have to place another catheter, but he is declining at this time. Dr. Reeves notified with no new orders at this time.
--- NOTE | 2021-02-14 05:49 | NUR ---
Received orders from Dr. Reeves to straight cath for over 300cc
[2021-02-14] MEDS: PANTOPRAZOLE SODIUM 40 MG TABLET.DR PO SCH (06:04)
[2021-02-14 06:14] LABS: HEMATOCRIT 32.3 % (36.7-47.1); MEAN CORPUSCULAR HEMOGLOBIN 27.7 uug (23.8-33.4); MEAN CORPUSCULAR VOLUME 84.5 fL (73.0-96.2); PLATELET COUNT (AUTO) 361 K/uL (152-348)
[2021-02-14 06:16] LABS: CREATININE 0.8 mg/dL (0.6-1.3); POTASSIUM 4.3 mmol/L (3.5-5.1)
[2021-02-14] MEDS: BLOOD SUGAR DIAGNOSTIC 1 EACH STRIP VI SCH ×4 (06:47→20:42)
[2021-02-14] MEDS: MIRALAX 17 GM POWD.PACK PO SCH (08:34)
[2021-02-14] MEDS: OXYCODONE/APAP 5-325 MG TABLET PO SCH (08:34)
[2021-02-14] MEDS: ASPIRIN 81 MG TAB.CHEW PO SCH (08:35)
[2021-02-14] MEDS: CARVEDILOL 3.125 MG TABLET PO SCH ×2 (08:35→20:33)
[2021-02-14] MEDS: MAGNESIUM HYDROXIDE 30 ML LIQUID UDC PO PRN (08:35)
[2021-02-14] MEDS: INSULIN REGULAR, HUMAN 300 UNIT/3 ML VIAL SQ PRN ×3 (10:57→20:43)
[2021-02-14 11:20] VITALS: BP 119/56
[2021-02-14 15:25] VITALS: BP 122/87
--- NOTE | 2021-02-14 16:08 | NUR ---
SPOKE TO SURGEON ON THE PHONE, ORDERS CARRIED OUT ORDERED.
[2021-02-14] MEDS ORDERED: HYDROMORPHONE HCL 2 MG TABLET PO PRN (16:30)
[2021-02-14] MEDS: KETOROLAC TROMETHAMINE 15 MG INJ IVP SCH (17:19)
--- NOTE | 2021-02-14 17:52 | NUR ---
bladder scan performed, straight cath performed, 1000ml urine output.
[2021-02-14] MEDS ORDERED: KETOROLAC TROMETHAMINE 10 MG TABLET PO SCH (18:00)
--- NOTE | 2021-02-14 19:07 | NUR ---
chen inserted, pain meds adjusted
--- NOTE | 2021-02-14 19:32 | NUR ---
alert, oriented x4, no acute distress noted, report given to oncoming nurse
[2021-02-14 20:00] VITALS: BP 116/62
[2021-02-14] MEDS: CEFTRIAXONE 2 G in IV DEXTROSE 5% 100 ML IV SCH (20:33)
[2021-02-14] MEDS: HYDROMORPHONE 1 MG/1 ML DISP.SYRIN IV PRN (20:34)
[2021-02-14] MEDS: CYCLOBENZAPRINE HCL 10 MG TABLET PO SCH (21:37)
[2021-02-15] MEDS: KETOROLAC TROMETHAMINE 15 MG INJ IVP SCH ×4 (00:09→17:35)
[2021-02-15] MEDS: HYDROMORPHONE 1 MG/1 ML DISP.SYRIN IV PRN ×2 (02:05→08:23)
[2021-02-15 04:00] VITALS: BP 115/61
[2021-02-15] MEDS: PANTOPRAZOLE SODIUM 40 MG TABLET.DR PO SCH (06:25)
[2021-02-15] MEDS: CYCLOBENZAPRINE HCL 10 MG TABLET PO SCH ×2 (06:25→14:10)
[2021-02-15 06:26] LABS: MEAN CORPUSCULAR HEMOGLOBIN 28.2 uug (23.8-33.4); MEAN CORPUSCULAR VOLUME 83.2 fL (73.0-96.2); PLATELET COUNT (AUTO) 287 K/uL (152-348)
[2021-02-15] MEDS: BLOOD SUGAR DIAGNOSTIC 1 EACH STRIP VI SCH ×4 (06:35→21:09)
[2021-02-15 06:43] LABS: CREATININE 0.8 mg/dL (0.6-1.3); POTASSIUM 4.2 mmol/L (3.5-5.1)
--- NOTE | 2021-02-15 06:59 | NUR ---
Slept throughout the night. Garces intact and draining salome colored urine. C/o back pain, relieved by Dilaudid. Denies SOB. Able to make needs known. Noticed some swelling in MY midline. New IV access started on patient, tolerated well. Will endorse to day shift.
--- NOTE | 2021-02-15 07:30 | NUR ---
Patient received in bed with eyes closed, but easily arousable. Patient on RA with no SOB or difficulties breathing. No acute distress noted at this time. Garces is draining clear salome urine via gravity at this time. Right FA IV patent with no redness or swelling noted at this time. MY midline is patent, but some swelling noted below. Call light and personal belongings within easy reach. Will continue to monitor.
[2021-02-15] MEDS: CARVEDILOL 3.125 MG TABLET PO SCH ×2 (08:23→20:59)
[2021-02-15] MEDS: MIRALAX 17 GM POWD.PACK PO SCH (08:23)
[2021-02-15] MEDS: INSULIN REGULAR, HUMAN 300 UNIT/3 ML VIAL SQ PRN ×4 (08:25→21:13)
--- NOTE | 2021-02-15 11:14 | NUR ---
CALLED AND LEFT MESSAGE WITH DR. COOK'S CEO & BOARD DIRECTOR TO SPECIFY THE TYPE OF BACK BRACE HE WANTS ORDERED.
[2021-02-15 12:34] VITALS: BP 122/56
[2021-02-15] MEDS ORDERED: HYDROCODONE/APAP 10-325 MG TABLET PO PRN (13:15)
[2021-02-15] MEDS ORDERED: KETOROLAC TROMETHAMINE 30 MG INJ IVP ONE (13:15)
--- NOTE | 2021-02-15 14:00 | NUR ---
Clarified order for back brace: TLSO and ordered. Just need to wait for it to arrive.
[2021-02-15] MEDS: GABAPENTIN 100 MG CAPSULE PO SCH ×2 (14:10→17:35)
[2021-02-15] MEDS ORDERED: DIAZEPAM 10 MG/2 ML DISP.SYRIN IV PRN (14:30)
[2021-02-15] MEDS: HYDROMORPHONE 2 MG/1 ML DISP.SYRIN IV PRN (14:32)
[2021-02-15] MEDS ORDERED: DIAZEPAM 5 MG TABLET PO PRN (14:45)
[2021-02-15 15:59] VITALS: BP 138/56
[2021-02-15] MEDS ORDERED: IV NS 1000 ML 1,000 ML IV PRN (17:30)
[2021-02-15 20:00] VITALS: BP 143/69
--- NOTE | 2021-02-15 20:38 | NUR ---
[facility] liner here to insert Mid Line for the patient. Addendum: 02/15/21 at 2038 by KRUPA AJ RN wrong patient
[2021-02-15] MEDS: CEFTRIAXONE 2 G in IV DEXTROSE 5% 100 ML IV SCH (20:59)
[2021-02-16] MEDS: KETOROLAC TROMETHAMINE 15 MG INJ IVP SCH ×4 (01:06→17:07)
[2021-02-16] MEDS: CYCLOBENZAPRINE HCL 10 MG TABLET PO SCH ×4 (01:06→21:11)
[2021-02-16 04:05] VITALS: BP 147/69
[2021-02-16] MEDS: HYDROMORPHONE 2 MG/1 ML DISP.SYRIN IV PRN ×2 (04:08→12:34)
[2021-02-16] MEDS: PANTOPRAZOLE SODIUM 40 MG TABLET.DR PO SCH (06:22)
[2021-02-16] MEDS: BLOOD SUGAR DIAGNOSTIC 1 EACH STRIP VI SCH ×4 (06:25→20:29)
[2021-02-16 06:53] LABS: CREATININE 0.8 mg/dL (0.6-1.3); POTASSIUM 4.3 mmol/L (3.5-5.1)
[2021-02-16 07:04] LABS: HEMATOCRIT 28.3 % (36.7-47.1); MEAN CORPUSCULAR HEMOGLOBIN 27.8 uug (23.8-33.4); MEAN CORPUSCULAR VOLUME 83.4 fL (73.0-96.2); PLATELET COUNT (AUTO) 308 K/uL (152-348)
--- NOTE | 2021-02-16 07:30 | NUR ---
Patient received in bed with eyes closed, but easily arousable. Patient on RA with no SOB or difficulties breathing. No acute distress noted at this time. Garces is draining clear salome urine via gravity at this time. Right FA IV patent with no redness or swelling noted at this time. MY midline is patent, but some swelling noted below. Still awaiting back brace, which was ordered yesterday. Call light and personal belongings within easy reach. Will continue to monitor.
--- NOTE | 2021-02-16 08:00 | NUR ---
Back brace at bedside. Patient states he would like to put it on when physical therapy comes. Does not want it at this time.
[2021-02-16 08:23] VITALS: BP 138/74
[2021-02-16] MEDS: GABAPENTIN 100 MG CAPSULE PO SCH ×3 (08:29→17:06)
[2021-02-16] MEDS: CARVEDILOL 3.125 MG TABLET PO SCH ×2 (08:29→20:34)
[2021-02-16] MEDS: MIRALAX 17 GM POWD.PACK PO SCH (08:29)
[2021-02-16] MEDS: INSULIN REGULAR, HUMAN 300 UNIT/3 ML VIAL SQ PRN ×4 (08:30→20:33)
[2021-02-16] MEDS ORDERED: ASPIRIN 81 MG TAB.CHEW PO SCH (09:00)
--- NOTE | 2021-02-16 10:16 | NUR ---
IVF NOW RUNNING AT 50ML/H. PATIENT'S AND SON AT BEDSIDE.
--- NOTE | 2021-02-16 11:06 | NUR ---
D/C'ed IVF as ordered at this time. Will continue to monitor.
[2021-02-16 11:26] VITALS: BP 167/83
--- NOTE | 2021-02-16 13:30 | NUR ---
Midline nurse at bedside to check slight swelling below right UA midline. As per midline nurse, midline is patent and good to use.
[2021-02-16 15:16] VITALS: BP 154/72
[2021-02-16 20:00] VITALS: BP 129/60
[2021-02-16] MEDS: MAGNESIUM HYDROXIDE 30 ML LIQUID UDC PO PRN (20:35)
[2021-02-16] MEDS: CEFTRIAXONE 2 G in IV DEXTROSE 5% 100 ML IV SCH (20:35)
--- NOTE | 2021-02-16 20:55 | NUR ---
Received pt resting in bed. AAO x4. and son at bedside. No acute distress noted. Denies pain/ discomfort at this time. Blood sugar 215, insulin coverage given as per sliding scale. Garces catheter draining well with yellow colored urine. MY midline, patent and intact. Safety measures maintained. Call light within reach. Will continue to monitor.
[2021-02-16] MEDS: FINASTERIDE 5 MG TABLET PO SCH (22:12)
[2021-02-16] MEDS: TAMSULOSIN HCL 0.4 MG CAP.SR.24H PO SCH (22:12)
[2021-02-17] MEDS: KETOROLAC TROMETHAMINE 15 MG INJ IVP SCH ×4 (00:06→21:55)
[2021-02-17 04:00] VITALS: BP 122/77
[2021-02-17] MEDS: CYCLOBENZAPRINE HCL 10 MG TABLET PO SCH ×3 (05:00→21:55)
[2021-02-17] MEDS: PANTOPRAZOLE SODIUM 40 MG TABLET.DR PO SCH (06:01)
[2021-02-17] MEDS: BLOOD SUGAR DIAGNOSTIC 1 EACH STRIP VI SCH ×4 (06:31→22:07)
[2021-02-17 06:39] LABS: HEMATOCRIT 30.3 % (36.7-47.1); MEAN CORPUSCULAR VOLUME 83.8 fL (73.0-96.2); PLATELET COUNT (AUTO) 330 K/uL (152-348)
[2021-02-17 07:09] LABS: CREATININE 0.9 mg/dL (0.6-1.3); POTASSIUM 4.6 mmol/L (3.5-5.1)
--- NOTE | 2021-02-17 07:30 | NUR ---
Received in bed awake, alert and oriented x2. No respiratory distress noted. Denies pain. Iv intact. Bed low and locked. Safety measures in place. Kept comfortable. Will continue to monitor.
[2021-02-17] MEDS: INSULIN REGULAR, HUMAN 300 UNIT/3 ML VIAL SQ PRN ×4 (07:42→22:02)
[2021-02-17] MEDS: CARVEDILOL 3.125 MG TABLET PO SCH ×2 (09:02→21:55)
[2021-02-17] MEDS: MIRALAX 17 GM POWD.PACK PO SCH (09:02)
[2021-02-17] MEDS: FINASTERIDE 5 MG TABLET PO SCH (09:02)
[2021-02-17] MEDS: GABAPENTIN 100 MG CAPSULE PO SCH ×3 (09:02→17:13)
--- NOTE | 2021-02-17 10:41 | NUR ---
Patient wants to go to the bathroom. Tried to assist patient but still c/o pain and has difficulty moving left leg. Given bed arenas instead and will try to make bm today. Family at bedside and aware.
--- NOTE | 2021-02-17 11:30 | NUR ---
No bm. Said he'll try again later.
[2021-02-17 11:58] VITALS: BP 151/79
--- NOTE | 2021-02-17 12:16 | NUR ---
Patient sleeping comfortably. at bedside requested not to give Toradol at this time. Per , patient didn't sleep much last night and asked where she was. He is comfortable. Breathing even and non labored. No sob noted. Will hold pain medication for now.
--- NOTE | 2021-02-17 13:24 | NUR ---
Checked on patient still sleeping comfortably. Family at bedside. Per son his dad woke up for a little bit and his hand was twitching a little said his leg hurt then went back to sleep. Informed BRICK EXTRUDER OPERATOR Miguel of hand twitching episode.
[2021-02-17] MEDS ORDERED: LACTULOSE 20 G/30 ML LIQUID UDC PO PRN (14:00)
--- NOTE | 2021-02-17 14:00 | NUR ---
FEMI Rivera spoke with the patient and the family at bedside.
--- NOTE | 2021-02-17 15:10 | NUR ---
Patient appears drowsy. Wakes up for a few minutes but goes back to sleep. Refused noon meds.
[2021-02-17 16:00] VITALS: BP 143/68
--- NOTE | 2021-02-17 17:00 | NUR ---
Provided bed arenas. Still no bm.
--- NOTE | 2021-02-17 18:31 | NUR ---
Per C ENGINEER Miguel she contacted neurosurgeon Dr. Gracia to come see pt juma.
--- NOTE | 2021-02-17 18:54 | NUR ---
Alert and oriented more conversant with family at bedside. No respiratory distress. FC intact draining yellow urine. No bm today. Needs attended. Safety maintained. Call light kept within reach.
--- NOTE | 2021-02-17 19:30 | NUR ---
RECEIVED PT AWAKE, ALERT AND ORIENTEDX4. PT IN NO ACUTE DISTRESS. IV INTACT. PAUL CATHETER INTACT. FAMILY AT BEDSIDE. SAFETY AND COMFORT PROVIDED. WILL CONTINUE TO MONITOR.
[2021-02-17 20:00] VITALS: BP 162/78
[2021-02-17] MEDS: CEFTRIAXONE 2 G in IV DEXTROSE 5% 100 ML IV SCH (21:54)
[2021-02-17] MEDS: TAMSULOSIN HCL 0.4 MG CAP.SR.24H PO SCH (21:54)
[2021-02-17 22:49] VITALS: BP 145/59
[2021-02-18 04:00] VITALS: BP 160/75
[2021-02-18] MEDS: CYCLOBENZAPRINE HCL 10 MG TABLET PO SCH ×2 (05:55→13:10)
[2021-02-18] MEDS: KETOROLAC TROMETHAMINE 15 MG INJ IVP SCH ×3 (05:55→14:00)
[2021-02-18] MEDS: PANTOPRAZOLE SODIUM 40 MG TABLET.DR PO SCH (06:02)
--- NOTE | 2021-02-18 06:19 | NUR ---
PT SLEPT INTERMITTENTLY. PT IN NO ACUTE DISTRESS. PRESCRIBED MEDICATION GIVEN AND PT TOLERATED IT WELL. IV INTACT. PAUL INTACT AND DRAINING WELL. BLOOD SUGAR WAS 147 AND 147 . SAFETY AND COMFORT PROVIDED. ALL NEEDS ARE MET. WILL ENDORSE TO INCOMING NURSE FOR CONTINUITY OF CARE.
[2021-02-18 06:33] LABS: HEMATOCRIT 30.5 % (36.7-47.1); MEAN CORPUSCULAR HEMOGLOBIN 28.4 uug (23.8-33.4); MEAN CORPUSCULAR VOLUME 83.1 fL (73.0-96.2); PLATELET COUNT (AUTO) 326 K/uL (152-348)
[2021-02-18] MEDS: BLOOD SUGAR DIAGNOSTIC 1 EACH STRIP VI SCH ×3 (06:34→16:28)
[2021-02-18 06:43] LABS: CREATININE 0.8 mg/dL (0.6-1.3); POTASSIUM 3.8 mmol/L (3.5-5.1)
[2021-02-18] MEDS: INSULIN REGULAR, HUMAN 300 UNIT/3 ML VIAL SQ PRN ×3 (07:41→16:27)
--- NOTE | 2021-02-18 08:48 | NUR ---
With PT for eval. at bedside.
--- NOTE | 2021-02-18 09:09 | NUR ---
Per PT patient stood up, did marching exercises but not enough to go to the bathroom yet.
[2021-02-18] MEDS: MIRALAX 17 GM POWD.PACK PO SCH (09:18)
[2021-02-18] MEDS: GABAPENTIN 100 MG CAPSULE PO SCH ×3 (09:19→17:08)
[2021-02-18] MEDS: FINASTERIDE 5 MG TABLET PO SCH (09:19)
[2021-02-18] MEDS: CARVEDILOL 3.125 MG TABLET PO SCH (09:19)
[2021-02-18 11:23] VITALS: BP 169/77
[2021-02-18] MEDS: hydrALAZINE HCL 25 MG TABLET PO PRN (11:45)
--- NOTE | 2021-02-18 11:52 | NUR ---
Hydralazine prn given for bp 169/77 p81. Continue to monitor.
[2021-02-18] MEDS ORDERED: HYDR-3980 PO (14:46)
[2021-02-18] MEDS ORDERED: INSU100V28 SQ (14:46)
[2021-02-18] MEDS ORDERED: Blood Sugar Diagnostic VI (14:46)
[2021-02-18] MEDS ORDERED: CYCL10TA9 PO (14:46)
[2021-02-18] MEDS ORDERED: FINA5TAB11 PO ×2 (14:46→20:44)
[2021-02-18] MEDS ORDERED: LACT10SO7 PO (14:46)
[2021-02-18] MEDS ORDERED: CARV6.252 PO (14:46)
[2021-02-18] MEDS ORDERED: TEMA15CA5 PO ×2 (14:46→20:44)
[2021-02-18] MEDS ORDERED: GABA-532 PO ×2 (14:46→20:44)
[2021-02-18] MEDS ORDERED: ACET325T53 PO (14:46)
[2021-02-18] MEDS ORDERED: PANT40TA2 PO ×2 (14:46→20:44)
[2021-02-18] MEDS ORDERED: DIAZ5DIS4 IV (14:46)
[2021-02-18] MEDS ORDERED: POLY17PO4 PO (14:46)
[2021-02-18] MEDS ORDERED: KETO15VI5 IVP (14:46)
[2021-02-18] MEDS ORDERED: CEFT2FRO2 IV (14:46)
[2021-02-18] MEDS ORDERED: TAMS-3 PO ×2 (14:46→20:44)
--- NOTE | 2021-02-18 15:02 | NUR ---
Patient's requested not to give Toradol. Sleeping comfortably. No s/sx of pain/discomfort noted.
[2021-02-18 16:00] VITALS: BP 155/81
[2021-02-18 17:08] VITALS: BP 155/81
[2021-02-18] MEDS ORDERED: CARVEDILOL 6.25 MG TABLET PO SCH (18:00)
--- NOTE | 2021-02-18 18:42 | NUR ---
Patient awake alert and oriented. No respiratory distress noted. To be discharged to [facility] per MD order. Relayed discharged instructions to the patient and at bedside. Patient verbalized understanding. Kept comfortable.
[2021-02-18] MEDS ORDERED: CEFT2VIA14 IV (20:44)
[2021-02-18] MEDS ORDERED: LACT10SO3 PO (20:44)
[2021-02-18] MEDS ORDERED: ONDA4TAB5 IVP (20:44)
[2021-02-18] MEDS ORDERED: HYDR-3974 PO (20:44)
[2021-02-18] MEDS ORDERED: MAGN400O6 PO (20:44)
[2021-02-18] MEDS ORDERED: POLY119P2 PO (20:44)
[2021-02-18] MEDS ORDERED: HYDR-894 PO (20:44)
[2021-02-18] MEDS ORDERED: CARV6.25 PO (20:44)
[2021-02-18] MEDS ORDERED: ASPI81TA31 PO (20:44)
[2021-02-18] MEDS ORDERED: HYDR2SYR2 IJ (20:44)
[2021-02-18] MEDS ORDERED: [UNRECOGNIZED DRUG - CODE] IVP (20:44)
[2021-02-18] MEDS ORDERED: CYCL7.5T17 PO (20:44)
[2021-02-18] MEDS ORDERED: ACET-2154 PO (20:44)
[2021-02-18] MEDS ORDERED: CARVEDILOL 3.125 MG TABLET PO SCH (21:00)
[2021-02-20] MEDS ORDERED: ASPIRIN 81 MG TAB.CHEW PO SCH ×2 (09:00→10:03)
== END 2021-02-18 19:00 | DRG 853 ==
LOC: ER 20:52 → MEDSURG3 02-09 01:36
PROVIDERS: ADMIT Family Medicine; ATTEND Nurse Practitioner Acute Care
PROC: 05H533Z Insertion of Infusion Device into Right Subclavian Vein, Percutaneous Approach (ICD-10-PCS; 2021-02-09)
PROC: B546ZZA Ultrasonography of Right Subclavian Vein, Guidance (ICD-10-PCS; 2021-02-09)
PROC: 009U0ZZ Drainage of Spinal Canal, Open Approach (ICD-10-PCS; principal; 2021-02-13)
DX: A41.9 Sepsis, unspecified organism (principal); G06.1 Intraspinal abscess and granuloma; I50.31 Acute diastolic (congestive) heart failure; M46.27 Osteomyelitis of vertebra, lumbosacral region; E44.1 Mild protein-calorie malnutrition; E87.1 Hypo-osmolality and hyponatremia; M46.47 Discitis, unspecified, lumbosacral region; E11.69 Type 2 diabetes mellitus with other specified complication; B95.61 Methicillin susceptible Staphylococcus aureus infection as the cause of diseases classified elsewhere; I11.0 Hypertensive heart disease with heart failure; I25.5 Ischemic cardiomyopathy; D63.8 Anemia in other chronic diseases classified elsewhere; E78.5 Hyperlipidemia, unspecified; E86.1 Hypovolemia; I25.10 Atherosclerotic heart disease of native coronary artery without angina pectoris; K59.00 Constipation, unspecified; Z86.711 Personal history of pulmonary embolism; Z86.61 Personal history of infections of the central nervous system; Z95.1 Presence of aortocoronary bypass graft; Z20.822 Contact with and (suspected) exposure to COVID-19; R74.8 Abnormal levels of other serum enzymes; E88.09 Other disorders of plasma-protein metabolism, not elsewhere classified; E11.65 Type 2 diabetes mellitus with hyperglycemia; M48.07 Spinal stenosis, lumbosacral region; I35.0 Nonrheumatic aortic (valve) stenosis; G89.29 Other chronic pain
CPT/HCPCS: 36415; 71045; 72100; 72158; 76770; 83550; 83605; 83735; 83935; 84100; 84300; 84443; 84550; 85025; 85610; 85651; 85730; 86140; 86850; 86900; 86901; 87040; 87070; 87075; 87077; 93005; 93307; 97161; A4649; A4663; C1758; G0378; J0690; J0696; J1170; J1815; J1885; J1940; J2250; J2270; J2405; J2543; J2765; J3010; J3490; J7030; J7040; J7050; J7060

== ENCOUNTER 2021-02-18 12:26 | Inpatient (IN) | payer MEDICARE ==
[~2021-02-18] VITALS: Ht 185.4 cm; Wt 83.9 kg
[~2021-02-18 12:26] MED LIST changes: -VANC1PLA9 IV
[2021-02-18] MEDS ORDERED: KETO15VI5 IVP (14:46)
[2021-02-18] MEDS ORDERED: POLY17PO4 PO (14:46)
[2021-02-18] MEDS ORDERED: HYDR-3980 PO (14:46)
[2021-02-18] MEDS ORDERED: GABA-532 PO ×2 (14:46→20:44)
[2021-02-18] MEDS ORDERED: Blood Sugar Diagnostic VI (14:46)
[2021-02-18] MEDS ORDERED: CEFT2FRO2 IV (14:46)
[2021-02-18] MEDS ORDERED: CARV6.252 PO (14:46)
[2021-02-18] MEDS ORDERED: CYCL10TA9 PO (14:46)
[2021-02-18] MEDS ORDERED: ACET325T53 PO (14:46)
[2021-02-18] MEDS ORDERED: DIAZ5DIS4 IV (14:46)
[2021-02-18] MEDS ORDERED: LACT10SO7 PO (14:46)
[2021-02-18] MEDS ORDERED: INSU100V28 SQ (14:46)
[2021-02-18] MEDS ORDERED: TAMS-3 PO ×2 (14:46→20:44)
[2021-02-18] MEDS ORDERED: PANT40TA2 PO ×2 (14:46→20:44)
[2021-02-18] MEDS ORDERED: TEMA15CA5 PO ×2 (14:46→20:44)
[2021-02-18] MEDS ORDERED: FINA5TAB11 PO ×2 (14:46→20:44)
[2021-02-18 20:00] VITALS: BP 131/62
[2021-02-18] MEDS ORDERED: Z GUARD REMEDY PASTE 57 GM TUBE TOP PRN (20:15)
[2021-02-18] MEDS ORDERED: ASPI81TA31 PO (20:44)
[2021-02-18] MEDS ORDERED: ACET-2154 PO (20:44)
[2021-02-18] MEDS ORDERED: HYDR-894 PO (20:44)
[2021-02-18] MEDS ORDERED: LACT10SO3 PO (20:44)
[2021-02-18] MEDS ORDERED: HYDR-3974 PO (20:44)
[2021-02-18] MEDS ORDERED: CEFT2VIA14 IV (20:44)
[2021-02-18] MEDS ORDERED: MAGN400O6 PO (20:44)
[2021-02-18] MEDS ORDERED: [UNRECOGNIZED DRUG - CODE] IVP (20:44)
[2021-02-18] MEDS ORDERED: POLY119P2 PO (20:44)
[2021-02-18] MEDS ORDERED: CYCL7.5T17 PO (20:44)
[2021-02-18] MEDS ORDERED: ONDA4TAB5 IVP (20:44)
[2021-02-18] MEDS ORDERED: HYDR2SYR2 IJ (20:44)
[2021-02-18] MEDS ORDERED: CARV6.25 PO (20:44)
[2021-02-18] MEDS ORDERED: BLOOD SUGAR DIAGNOSTIC 1 EACH STRIP VI SCH (22:15)
[2021-02-18] MEDS ORDERED: CEFTRIAXONE 2 G in IV DEXTROSE 5% 100 ML IV SCH (22:15)
[2021-02-18] MEDS ORDERED: ONDANSETRON HCL 4 MG TABLET PO PRN (22:15)
[2021-02-18] MEDS ORDERED: DEXTROSE 50% 50 ML DISP.SYRIN IV PRN ×2 (22:15→22:30)
[2021-02-18] MEDS ORDERED: hydrALAZINE HCL 25 MG TABLET PO PRN (22:15)
[2021-02-18] MEDS ORDERED: HYDROCODONE/APAP 5-325MG TABLET PO PRN (22:15)
[2021-02-18] MEDS ORDERED: ACETAMINOPHEN 325 MG TABLET PO PRN (22:15)
[2021-02-18] MEDS ORDERED: INSULIN REGULAR, HUMAN 300 UNITS/3 ML VIAL SQ PRN (22:30)
[2021-02-18] MEDS ORDERED: INSULIN REGULAR, HUMAN 300 UNIT/3 ML VIAL SQ PRN (22:30)
[2021-02-18] MEDS: INSULIN REGULAR, HUMAN 300 UNIT/3 ML VIAL SQ PRN (23:29)
[2021-02-18] MEDS: OXYCODONE HCL 5 MG TABLET PO PRN (23:30)
[2021-02-18] MEDS ORDERED: CEFTRIAXONE 1 G VIAL ONE (23:46)
[2021-02-19] VITALS: BP 149/75
[2021-02-19 05:00] VITALS: BP 141/68
[2021-02-19] MEDS: PANTOPRAZOLE SODIUM 40 MG TABLET.DR PO SCH (05:35)
[2021-02-19] MEDS: BLOOD SUGAR DIAGNOSTIC 1 EACH STRIP VI SCH ×4 (06:09→20:49)
--- NOTE | 2021-02-19 06:32 | NUR ---
Pt. admitted to ARU room 302, Dr. Sales made aware of admission and made aware of med recon. Dx: s/p L5-S1 Laminectomy Belongs List completed, skin assessed, intact. Axox4 no acute distress noted. C/o 6/10 pain administered Oxyir PRN, effective. All due medication administered and tolerated well.Garces cath intact and draining yellow urine. pt slept intermittently. Needs attended too. Will continue plan of care.
[2021-02-19] MEDS: INSULIN REGULAR, HUMAN 300 UNIT/3 ML VIAL SQ PRN ×4 (07:44→20:50)
[2021-02-19] MEDS: CARVEDILOL 6.25 MG TABLET PO SCH ×2 (08:23→17:25)
[2021-02-19] MEDS: GABAPENTIN 100 MG CAPSULE PO SCH ×3 (08:23→17:25)
[2021-02-19] MEDS: ASPIRIN 81 MG TAB.CHEW PO SCH (08:23)
[2021-02-19] MEDS: FINASTERIDE 5 MG TABLET PO SCH (08:23)
[2021-02-19] MEDS: MAGNESIUM HYDROXIDE 30 ML LIQUID UDC PO PRN (08:23)
[2021-02-19 08:24] VITALS: BP 151/75
[2021-02-19] MEDS ORDERED: LACTULOSE 20 G/30 ML LIQUID UDC PO ONE (08:45)
--- NOTE | 2021-02-19 09:31 | NUR ---
Received this morning awake alert and responsive. No resp distress. Comfortable on room air. C/o of constipation. Relieved now after Mom. Garces catheter draining yellow urine. Denies pain. Safety measures in place. Call light within reach. Will continue to monitor.
[2021-02-19] MEDS: OXYCODONE HCL 5 MG TABLET PO PRN (10:33)
[2021-02-19 14:30] VITALS: BP 124/68
--- NOTE | 2021-02-19 19:00 | NUR ---
alert and oriented resting. denies pain at this time. chen catheter intact draining yellow urine. no resp distress. pt/ot tolerated this morning. at bedside and updated. endorsed.
[2021-02-19 20:00] VITALS: BP 110/51
[2021-02-19] MEDS: TAMSULOSIN HCL 0.4 MG CAP.SR.24H PO SCH (20:48)
[2021-02-19] MEDS: TEMAZEPAM 15 MG CAPSULE PO SCH (20:48)
[2021-02-20] MEDS: CEFTRIAXONE 2 G in IV DEXTROSE 5% 100 ML IV SCH ×2 (01:17→23:22)
[2021-02-20 04:35] VITALS: BP 138/66
[2021-02-20] MEDS: PANTOPRAZOLE SODIUM 40 MG TABLET.DR PO SCH (06:06)
[2021-02-20] MEDS: BLOOD SUGAR DIAGNOSTIC 1 EACH STRIP VI SCH ×4 (06:11→20:54)
[2021-02-20 08:00] VITALS: BP 149/72
[2021-02-20] MEDS: GABAPENTIN 100 MG CAPSULE PO SCH ×3 (09:44→17:27)
[2021-02-20] MEDS: FINASTERIDE 5 MG TABLET PO SCH (09:44)
[2021-02-20] MEDS: ASPIRIN 81 MG TAB.CHEW PO SCH (09:44)
[2021-02-20] MEDS: CARVEDILOL 6.25 MG TABLET PO SCH ×2 (09:44→17:27)
[2021-02-20] MEDS: INSULIN REGULAR, HUMAN 300 UNIT/3 ML VIAL SQ PRN ×4 (09:56→20:57)
[2021-02-20 12:00] VITALS: BP 145/76
--- NOTE | 2021-02-20 12:13 | NUR ---
INTERDISCIPLINARY TEAM CONFERENCE
--- NOTE | 2021-02-20 13:09 | NUR ---
Patient seen by Dr. Sales, update given to and MD ordered MS Contin 15mg PO BID and remove chen catheter.
[2021-02-20] MEDS: OXYCODONE HCL 5 MG TABLET PO PRN (14:08)
[2021-02-20 15:50] VITALS: BP 130/67
[2021-02-20 20:00] VITALS: BP 101/54
[2021-02-20] MEDS: TAMSULOSIN HCL 0.4 MG CAP.SR.24H PO SCH (20:18)
[2021-02-20] MEDS: TEMAZEPAM 15 MG CAPSULE PO SCH (20:18)
[2021-02-20] MEDS: MORPHINE SULFATE SR 15 MG TABLET.SA PO SCH (20:19)
[2021-02-21 04:00] VITALS: BP 125/65
[2021-02-21] MEDS: PANTOPRAZOLE SODIUM 40 MG TABLET.DR PO SCH (05:41)
[2021-02-21] MEDS: BLOOD SUGAR DIAGNOSTIC 1 EACH STRIP VI SCH ×4 (05:43→21:00)
--- NOTE | 2021-02-21 06:16 | NUR ---
Shift end Report: Slept good. No significant event reported all night. All needs attended and met. VS stable. Continue current rehab plan of care.
[2021-02-21 07:59] VITALS: BP 137/72
[2021-02-21] MEDS: GABAPENTIN 100 MG CAPSULE PO SCH ×3 (08:17→17:09)
[2021-02-21] MEDS: ASPIRIN 81 MG TAB.CHEW PO SCH (08:18)
[2021-02-21] MEDS: FINASTERIDE 5 MG TABLET PO SCH (08:18)
[2021-02-21] MEDS: MORPHINE SULFATE SR 15 MG TABLET.SA PO SCH ×2 (08:18→21:06)
[2021-02-21] MEDS: CARVEDILOL 6.25 MG TABLET PO SCH ×2 (08:18→17:10)
[2021-02-21] MEDS: INSULIN REGULAR, HUMAN 300 UNIT/3 ML VIAL SQ PRN ×2 (11:24→21:03)
[2021-02-21] MEDS: OXYCODONE HCL 5 MG TABLET PO PRN (11:28)
[2021-02-21 16:22] VITALS: BP 141/73
[2021-02-21] MEDS: GLUCERNA SHAKE VANILLA 237 ML CAN PO SCH (17:09)
[2021-02-21 20:00] VITALS: BP 123/73
[2021-02-21] MEDS: TEMAZEPAM 15 MG CAPSULE PO SCH (21:05)
[2021-02-21] MEDS: TAMSULOSIN HCL 0.4 MG CAP.SR.24H PO SCH (21:05)
--- NOTE | 2021-02-21 21:55 | NUR ---
Patient alert oriented times 3 to 4, able to let his needs known, resting in bed. All due medication administered as ordered, Accu check done insulin administered as per sliding scale. tolerated well. Routine pain medication MS contin effective. Patient sleeping with no distress. Kept clean and dry. Needs anticipated. Call light with in reach. Will continue monitor.
[2021-02-22] MEDS: CEFTRIAXONE 2 G in IV DEXTROSE 5% 100 ML IV SCH (00:12)
--- NOTE | 2021-02-22 00:30 | NUR ---
TOLERATED IV ANTIBIOTICS ORDERED WITH NO ADVERSE OR ALLERGIC REACTIONS AT THIS TIME
[2021-02-22 04:10] VITALS: BP 143/79
[2021-02-22] MEDS: PANTOPRAZOLE SODIUM 40 MG TABLET.DR PO SCH (06:00)
--- NOTE | 2021-02-22 06:24 | NUR ---
End of Shift Report: Patient slept good throughout the night, no acute distress or discomfort reported, all due medication administered. continue with current plan of care. Safety precautions observed all time, will endorse continuity of care to the AM nurse.
[2021-02-22] MEDS: BLOOD SUGAR DIAGNOSTIC 1 EACH STRIP VI SCH ×4 (06:37→21:29)
[2021-02-22 06:49] LABS: HEMATOCRIT 29.7 % (36.7-47.1); MEAN CORPUSCULAR HEMOGLOBIN 28.3 uug (23.8-33.4); MEAN CORPUSCULAR VOLUME 82.7 fL (73.0-96.2); PLATELET COUNT (AUTO) 330 K/uL (152-348)
[2021-02-22 07:16] LABS: CREATININE 0.8 mg/dL (0.6-1.3); PHOSPHOROUS 3.3 mg/dL (2.5-4.9); POTASSIUM 4.1 mmol/L (3.5-5.1)
[2021-02-22 07:34] VITALS: BP 160/69
[2021-02-22 07:36] VITALS: BP 148/89
[2021-02-22] MEDS: GABAPENTIN 100 MG CAPSULE PO SCH ×3 (08:06→16:35)
[2021-02-22] MEDS: ASPIRIN 81 MG TAB.CHEW PO SCH (08:06)
[2021-02-22] MEDS: FINASTERIDE 5 MG TABLET PO SCH (08:06)
[2021-02-22] MEDS: CARVEDILOL 6.25 MG TABLET PO SCH ×2 (08:07→17:27)
[2021-02-22] MEDS: MORPHINE SULFATE SR 15 MG TABLET.SA PO SCH (08:09)
[2021-02-22] MEDS: GLUCERNA SHAKE VANILLA 237 ML CAN PO SCH ×2 (08:09→17:27)
[2021-02-22] MEDS: INSULIN REGULAR, HUMAN 300 UNIT/3 ML VIAL SQ PRN ×4 (08:18→21:42)
--- NOTE | 2021-02-22 11:44 | NUR ---
INDIVIDUALIZED PLAN OF CARE
[2021-02-22] MEDS: OXYCODONE HCL 5 MG TABLET PO PRN (13:15)
--- NOTE | 2021-02-22 13:33 | NUR ---
Patient seen and examined by Dr. Henrry MD ordered to increase Gabapentin to 200mg PO TID, start Dexamethasone 4mg IV Q 8hrs x 3 days, and discontinue MS Contin.
[2021-02-22] MEDS: DEXAMETHASONE SOD PHOSPHATE 4 MG INJ IV SCH ×2 (14:36→21:29)
[2021-02-22] MEDS: MAGNESIUM HYDROXIDE 30 ML LIQUID UDC PO PRN (14:41)
[2021-02-22 15:39] VITALS: BP 103/46
[2021-02-22 20:29] VITALS: BP 118/62
[2021-02-22] MEDS: TAMSULOSIN HCL 0.4 MG CAP.SR.24H PO SCH (21:29)
[2021-02-22] MEDS: TEMAZEPAM 15 MG CAPSULE PO SCH (21:29)
[2021-02-23] MEDS: CEFTRIAXONE 2 G in IV DEXTROSE 5% 100 ML IV SCH ×2 (01:23→23:30)
[2021-02-23 04:34] VITALS: BP 135/63
[2021-02-23] MEDS: DEXAMETHASONE SOD PHOSPHATE 4 MG INJ IV SCH ×3 (05:43→21:15)
[2021-02-23] MEDS: BLOOD SUGAR DIAGNOSTIC 1 EACH STRIP VI SCH ×4 (05:46→20:47)
--- NOTE | 2021-02-23 06:36 | NUR ---
PATIENT ALERT ORIENTED, NO COMPLAIN OF PAIN, ASSISTED WITH TURNING AND REPOSITIONG. PATIENT USES URINAL FOR BLADDER ELIMINATIONS, PATIENT HAS NO BM YET, ENCOURAGE TO DRINK WATER, CONT TO MONITOR.
[2021-02-23] MEDS: PANTOPRAZOLE SODIUM 40 MG TABLET.DR PO SCH (06:50)
[2021-02-23 08:00] VITALS: BP 130/61
[2021-02-23] MEDS: INSULIN REGULAR, HUMAN 300 UNIT/3 ML VIAL SQ PRN ×3 (08:54→17:06)
[2021-02-23] MEDS: GABAPENTIN 100 MG CAPSULE PO SCH ×3 (08:58→17:06)
[2021-02-23] MEDS: ASPIRIN 81 MG TAB.CHEW PO SCH (08:58)
[2021-02-23] MEDS: FINASTERIDE 5 MG TABLET PO SCH (08:58)
[2021-02-23] MEDS: OXYCODONE HCL 5 MG TABLET PO PRN (08:59)
[2021-02-23] MEDS: CARVEDILOL 6.25 MG TABLET PO SCH ×2 (08:59→17:08)
[2021-02-23] MEDS: GLUCERNA SHAKE VANILLA 237 ML CAN PO SCH ×2 (09:05→17:00)
--- NOTE | 2021-02-23 10:00 | NUR ---
Patient received in bed, alert and oriented x4. On RA with no SOB or difficulties breathing. No acute distress noted at this time. Urinal at bedside within easy reach. Right upper arm midline is patent with no redness or swelling. No c/o pain or discomforts at this time. Will continue to monitor.
[2021-02-23] MEDS ORDERED: INSULIN REGULAR, HUMAN 300 UNITS/3 ML VIAL SQ PRN (12:45)
[2021-02-23] MEDS ORDERED: DEXTROSE 50% 50 ML DISP.SYRIN IV PRN (12:45)
--- NOTE | 2021-02-23 16:12 | NUR ---
INDIVIDUALIZED PLAN OF CARE
[2021-02-23] MEDS ORDERED: BLOOD SUGAR DIAGNOSTIC 1 EACH STRIP VI SCH (16:30)
[2021-02-23 16:36] VITALS: BP 105/52
[2021-02-23 20:00] VITALS: BP 110/65
[2021-02-23] MEDS: TEMAZEPAM 15 MG CAPSULE PO SCH (20:37)
[2021-02-23] MEDS: TAMSULOSIN HCL 0.4 MG CAP.SR.24H PO SCH (20:37)
--- NOTE | 2021-02-23 21:36 | NUR ---
Received patient on bed, alert and oriented x4. On RA with no respiratory distress noted. Midline on R upper arm remains patent, no redness or swelling. No c/o pain or discomforts at this time. Due medications given and tolerated well. All needs attended. Call light and urinal placed within reach. Will continue to monitor.
[2021-02-24 04:03] VITALS: BP 131/60
[2021-02-24] MEDS: DEXAMETHASONE SOD PHOSPHATE 4 MG INJ IV SCH ×3 (05:48→21:43)
[2021-02-24] MEDS: PANTOPRAZOLE SODIUM 40 MG TABLET.DR PO SCH (06:03)
[2021-02-24] MEDS: BLOOD SUGAR DIAGNOSTIC 1 EACH STRIP VI SCH ×4 (06:42→20:26)
--- NOTE | 2021-02-24 06:42 | NUR ---
Patient slept throughout the night, easily arousable for care. On RA with no respiratory distress noted. Midline on R upper arm remains patent, flushed with NS. No c/o pain or discomforts at this time. Due medications given and tolerated well. Urinal at bedside emptied out PRN. All needs attended. Call light placed within reach. Frequent visual checks done. Will continue to monitor. Addendum: 02/24/21 at 0646 by CARA VELASCO RN Correction: Will endorsed to next shift for continuity of care.
--- NOTE | 2021-02-24 07:30 | NUR ---
received patient alert/oriented x4, able to make needs known. Denies pain. No distress noted. IV line intact. Insulin given per sliding scale as ordered. Call light within reach. Will continue to monitor.
[2021-02-24] MEDS: INSULIN REGULAR, HUMAN 300 UNIT/3 ML VIAL SQ PRN ×3 (08:22→16:35)
[2021-02-24] MEDS: GABAPENTIN 100 MG CAPSULE PO SCH ×3 (08:29→16:25)
[2021-02-24] MEDS: FINASTERIDE 5 MG TABLET PO SCH (08:30)
[2021-02-24] MEDS: ASPIRIN 81 MG TAB.CHEW PO SCH (08:30)
[2021-02-24] MEDS: GLUCERNA SHAKE VANILLA 237 ML CAN PO SCH ×2 (08:30→16:36)
[2021-02-24] MEDS: CARVEDILOL 6.25 MG TABLET PO SCH ×2 (08:30→16:36)
[2021-02-24 08:31] VITALS: BP 151/83
[2021-02-24] MEDS: BISACODYL 5 MG TABLET.DR PO PRN (12:41)
[2021-02-24] MEDS: OXYCODONE HCL 5 MG TABLET PO PRN (13:05)
[2021-02-24] MEDS ORDERED: DEXTROSE 50% 50 ML DISP.SYRIN IV PRN (13:15)
[2021-02-24 16:00] VITALS: BP 107/69
[2021-02-24] MEDS: DOCUSATE SODIUM 100 MG CAPSULE PO SCH (16:25)
--- NOTE | 2021-02-24 18:17 | NUR ---
patient is now aggressive insulin scale from moderate. BS reading at noon was 392mg/dL and afternoon was 308 mg/dL, Insulin given per sliding scale as ordered. No edema noted to the BUE, and BLE. Requested pain medication prior to therapy, patient stated he did well with the session today. Dressing change to the incision site to the lower back, no drainage noted, no pain reported to the site. Denies discomfort at this time. family was at bedside. Patient is continent to bowel and bladder. He had BM today. MD ordered bowel regimen. Patient and family agreed. Will continue to monitor. Frequent checks done. All needs attended. All due meds given as ordered. Call light within reach. Safety precaution maintained.
[2021-02-24 20:00] VITALS: BP 116/69
[2021-02-24] MEDS: INSULIN REGULAR, HUMAN 300 UNITS/3 ML VIAL SQ PRN (20:31)
[2021-02-24] MEDS: TAMSULOSIN HCL 0.4 MG CAP.SR.24H PO SCH (20:31)
[2021-02-24] MEDS: TEMAZEPAM 15 MG CAPSULE PO SCH (20:36)
--- NOTE | 2021-02-24 21:00 | NUR ---
Patient refused to take Restoril for sleeping, he stated he does not need it. Educated regarding the medication. BS checked with 249mg/dL, given insulin per sliding scale as ordered. Call light within reach. No other concern identified. Will continue to monitor.
[2021-02-24] MEDS: CEFTRIAXONE 2 G in IV DEXTROSE 5% 100 ML IV SCH (23:00)
[2021-02-25 04:00] VITALS: BP 128/58
[2021-02-25] MEDS: DEXAMETHASONE SOD PHOSPHATE 4 MG INJ IV SCH (06:02)
[2021-02-25] MEDS: PANTOPRAZOLE SODIUM 40 MG TABLET.DR PO SCH (06:02)
--- NOTE | 2021-02-25 06:25 | NUR ---
Patient denies pain towards the ends of the shift. Denies discomfort. All due meds given, and needs attended. No distress identified. Safety precaution maintained. Will endorse to the next shift for continuity of care.
[2021-02-25] MEDS: BLOOD SUGAR DIAGNOSTIC 1 EACH STRIP VI SCH ×4 (07:05→21:13)
[2021-02-25 07:30] VITALS: BP 166/80
--- NOTE | 2021-02-25 08:00 | NUR ---
Discussed with pt importance of proper pain management and spine precautions of not twisting his spine secondary to him having a laminectomy. Pt verbalized understanding. Pt able to get oob to bathroom with Contact guard assist with proper technique of not twisting his spine. Suture noted on surgical site no drainage noted. Pt had a bm early am. Pt is in no acute distress. Call light is within reach.
[2021-02-25] MEDS: DOCUSATE SODIUM 100 MG CAPSULE PO SCH ×2 (08:24→16:26)
[2021-02-25] MEDS: ASPIRIN 81 MG TAB.CHEW PO SCH (08:24)
[2021-02-25] MEDS: GLUCERNA SHAKE VANILLA 237 ML CAN PO SCH ×2 (08:25→16:27)
[2021-02-25] MEDS: FINASTERIDE 5 MG TABLET PO SCH (08:25)
[2021-02-25] MEDS: GABAPENTIN 100 MG CAPSULE PO SCH ×3 (08:25→16:26)
[2021-02-25] MEDS: CARVEDILOL 6.25 MG TABLET PO SCH ×2 (08:25→17:08)
[2021-02-25] MEDS: INSULIN REGULAR, HUMAN 300 UNIT/3 ML VIAL SQ PRN ×3 (08:44→16:25)
[2021-02-25] MEDS: OXYCODONE HCL 5 MG TABLET PO PRN (09:56)
--- NOTE | 2021-02-25 12:00 | NUR ---
Pt wanted to go back to bed. Encouraged pt to stay seated on his wheel chair for lunch. Pt agreeable with plan.
[2021-02-25 15:43] VITALS: BP 93/56
--- NOTE | 2021-02-25 18:53 | NUR ---
Pain management prior pt physical therapy to day effective. Pt states that he was able to perform his therapy task with the oxy ir. Pt is in no acute distress. call light is within reach.
[2021-02-25 20:00] VITALS: BP 116/55
[2021-02-25] MEDS: TAMSULOSIN HCL 0.4 MG CAP.SR.24H PO SCH (21:13)
[2021-02-25] MEDS: TEMAZEPAM 15 MG CAPSULE PO SCH (21:13)
[2021-02-25] MEDS: INSULIN REGULAR, HUMAN 300 UNITS/3 ML VIAL SQ PRN (21:19)
[2021-02-26] MEDS: CEFTRIAXONE 2 G in IV DEXTROSE 5% 100 ML IV SCH
[2021-02-26 04:00] VITALS: BP_SYST 123; BP_SYST 134; BP_DIAS 69; BP_DIAS 87
[2021-02-26] MEDS: PANTOPRAZOLE SODIUM 40 MG TABLET.DR PO SCH (05:46)
[2021-02-26] MEDS: BLOOD SUGAR DIAGNOSTIC 1 EACH STRIP VI SCH ×4 (05:46→20:48)
--- NOTE | 2021-02-26 07:30 | NUR ---
Patient reported generalized pain, PRN pain medication given as ordered. BS 234mg/dL, insulin given per sliding scale. He is alert oriented, able to make needs known. No distress identified. Kept call light within reach. Will continue to monitor.
[2021-02-26] MEDS: OXYCODONE HCL 5 MG TABLET PO PRN ×2 (07:38→12:27)
[2021-02-26 07:39] VITALS: BP 135/66
[2021-02-26] MEDS: INSULIN REGULAR, HUMAN 300 UNIT/3 ML VIAL SQ PRN ×3 (07:40→16:43)
[2021-02-26 08:00] VITALS: BP 151/83
[2021-02-26] MEDS: GABAPENTIN 100 MG CAPSULE PO SCH ×3 (08:13→17:19)
[2021-02-26] MEDS: DOCUSATE SODIUM 100 MG CAPSULE PO SCH ×2 (08:13→17:19)
[2021-02-26] MEDS: FINASTERIDE 5 MG TABLET PO SCH (08:13)
[2021-02-26] MEDS: CARVEDILOL 6.25 MG TABLET PO SCH ×2 (08:13→17:19)
[2021-02-26] MEDS: ASPIRIN 81 MG TAB.CHEW PO SCH (08:13)
[2021-02-26] MEDS: GLUCERNA SHAKE VANILLA 237 ML CAN PO SCH ×2 (08:14→17:20)
[2021-02-26 15:12] VITALS: BP 100/61
[2021-02-26] MEDS: METFORMIN HCL 500 MG TABLET PO SCH (18:19)
--- NOTE | 2021-02-26 19:10 | NUR ---
All needs attended. Reported pain to Dr Marie. Pain medication remained effective at this time. Incision site remained intact, no drainage noted. Metformin started as ordered. No distress identified. Endorsed to the next shift.
[2021-02-26 20:00] VITALS: BP 113/58
[2021-02-26] MEDS: TEMAZEPAM 15 MG CAPSULE PO SCH (20:46)
[2021-02-26] MEDS: TAMSULOSIN HCL 0.4 MG CAP.SR.24H PO SCH (20:46)
[2021-02-26] MEDS: INSULIN REGULAR, HUMAN 300 UNITS/3 ML VIAL SQ PRN (20:51)
--- NOTE | 2021-02-26 21:43 | NUR ---
Seen by Dr. Anand today with new order noted and carried out.
[2021-02-27] MEDS: CEFTRIAXONE 2 G in IV DEXTROSE 5% 100 ML IV SCH ×2 (00:11→23:37)
[2021-02-27 04:00] VITALS: BP 111/56
[2021-02-27] MEDS: PANTOPRAZOLE SODIUM 40 MG TABLET.DR PO SCH (05:33)
[2021-02-27] MEDS: BLOOD SUGAR DIAGNOSTIC 1 EACH STRIP VI SCH ×4 (05:38→21:06)
--- NOTE | 2021-02-27 07:10 | NUR ---
Shift End Report: VS stable. No complaint presented all night. Continue on IV antibiotics without s/s of adverse reaction. All needs attended and met. No s/s of hypo/hyperglycemia. Continue care as planned.
[2021-02-27] MEDS: FINASTERIDE 5 MG TABLET PO SCH (08:24)
[2021-02-27] MEDS: CARVEDILOL 6.25 MG TABLET PO SCH ×2 (08:24→17:10)
[2021-02-27] MEDS: OXYCODONE HCL 5 MG TABLET PO PRN (08:24)
[2021-02-27] MEDS: DOCUSATE SODIUM 100 MG CAPSULE PO SCH ×2 (08:24→17:06)
[2021-02-27] MEDS: METFORMIN HCL 500 MG TABLET PO SCH ×2 (08:24→17:05)
[2021-02-27] MEDS: GABAPENTIN 100 MG CAPSULE PO SCH ×3 (08:24→17:05)
[2021-02-27] MEDS: ASPIRIN 81 MG TAB.CHEW PO SCH (08:24)
[2021-02-27] MEDS: GLUCERNA SHAKE VANILLA 237 ML CAN PO SCH ×2 (08:25→17:11)
[2021-02-27 08:54] VITALS: BP 129/62
[2021-02-27] MEDS: INSULIN REGULAR, HUMAN 300 UNIT/3 ML VIAL SQ PRN ×2 (12:32→17:14)
--- NOTE | 2021-02-27 13:21 | NUR ---
INTERDISCIPLINARY TEAM CONFERENCE
[2021-02-27 15:59] VITALS: BP 94/48
[2021-02-27] MEDS: glyBURIDE 5 MG TABLET PO SCH (17:06)
--- NOTE | 2021-02-27 19:00 | NUR ---
Received patient awake with no concern at this time. Denies pain and discomfort. kept call light within reach. Will continue to monitor.
[2021-02-27 20:15] VITALS: BP 123/54
[2021-02-27] MEDS ORDERED: TEMAZEPAM 15 MG CAPSULE PO PRN (21:00)
[2021-02-27] MEDS ORDERED: MUPIROCIN 2% OINT 22 GM TUBE NS SCH (21:00)
--- NOTE | 2021-02-27 21:00 | NUR ---
BS is 256mg/dL, insulin per sliding scale administered as ordered. Will continue to monitor.
[2021-02-27] MEDS: TAMSULOSIN HCL 0.4 MG CAP.SR.24H PO SCH (21:07)
[2021-02-27] MEDS: INSULIN REGULAR, HUMAN 300 UNITS/3 ML VIAL SQ PRN (21:09)
[2021-02-28 04:20] VITALS: BP 125/60
[2021-02-28] MEDS: PANTOPRAZOLE SODIUM 40 MG TABLET.DR PO SCH (06:01)
[2021-02-28] MEDS: BLOOD SUGAR DIAGNOSTIC 1 EACH STRIP VI SCH ×4 (06:35→20:22)
--- NOTE | 2021-02-28 06:40 | NUR ---
Patient later BS reading is 143 mg/dL. Assisted patient with bedpan, noted with BMx2. Denies pain. Kept patient comfortable throughout the shift. Incision to his lower back is intact, no drainage noted. All needs attended. Due meds given. Endorsed for continuity of care.
[2021-02-28 07:02] LABS: HEMATOCRIT 33.5 % (36.7-47.1); MEAN CORPUSCULAR HEMOGLOBIN 27.7 uug (23.8-33.4); PLATELET COUNT (AUTO) 321 K/uL (152-348)
[2021-02-28 07:15] LABS: CREATININE 0.7 mg/dL (0.6-1.3); PHOSPHOROUS 3.3 mg/dL (2.5-4.9); POTASSIUM 4.3 mmol/L (3.5-5.1)
[2021-02-28 07:40] VITALS: BP 140/65
[2021-02-28] MEDS ORDERED: CARVEDILOL 6.25 MG TABLET PO SCH (08:00)
[2021-02-28] MEDS: GABAPENTIN 100 MG CAPSULE PO SCH ×3 (08:15→17:56)
[2021-02-28] MEDS: FINASTERIDE 5 MG TABLET PO SCH (08:15)
[2021-02-28] MEDS: DOCUSATE SODIUM 100 MG CAPSULE PO SCH ×2 (08:15→17:56)
[2021-02-28] MEDS: ASPIRIN 81 MG TAB.CHEW PO SCH (08:15)
[2021-02-28] MEDS: METFORMIN HCL 500 MG TABLET PO SCH ×2 (08:15→17:56)
[2021-02-28] MEDS: OXYCODONE HCL 5 MG TABLET PO PRN (08:17)
[2021-02-28] MEDS: CARVEDILOL 3.125 MG TABLET PO SCH ×2 (08:23→18:06)
[2021-02-28] MEDS: GLUCERNA SHAKE VANILLA 237 ML CAN PO SCH ×2 (08:23→17:56)
[2021-02-28] MEDS ORDERED: LACTULOSE 20 G/30 ML LIQUID UDC PO ONE (08:30)
[2021-02-28] MEDS: glyBURIDE 5 MG TABLET PO SCH ×2 (08:56→17:56)
[2021-02-28] MEDS: INSULIN REGULAR, HUMAN 300 UNIT/3 ML VIAL SQ PRN (11:12)
[2021-02-28 15:40] VITALS: BP 110/49
[2021-02-28 20:00] VITALS: BP 110/52
--- NOTE | 2021-02-28 20:00 | NUR ---
RECEIVED PATIENT AWAKE IN BED. A/O X4. VS WNL. NO C/O PAIN AT THIS TIME. NO RESP. DISTRESS NOTED. H/L INTACT AND PATENT NOTED TO RIGHT HAND #20 GAUGE. CALL LIGHT IN REACH. ALL NEEDS ATTENDED. WILL CONTINUE TO MONITOR AND ASSESS.
[2021-02-28] MEDS: TAMSULOSIN HCL 0.4 MG CAP.SR.24H PO SCH (20:22)
[2021-02-28] MEDS: INSULIN REGULAR, HUMAN 300 UNITS/3 ML VIAL SQ PRN (20:22)
[2021-02-28] MEDS: CEFTRIAXONE 2 G in IV DEXTROSE 5% 100 ML IV SCH (23:45)
[2021-03-01 04:00] VITALS: BP 112/62
[2021-03-01 05:54] LABS: HEMATOCRIT 32.3 % (36.7-47.1); MEAN CORPUSCULAR HEMOGLOBIN 27.4 uug (23.8-33.4); MEAN CORPUSCULAR VOLUME 81.9 fL (73.0-96.2); PLATELET COUNT (AUTO) 298 K/uL (152-348)
[2021-03-01 06:06] LABS: CREATININE 0.7 mg/dL (0.6-1.3); PHOSPHOROUS 3.8 mg/dL (2.5-4.9); POTASSIUM 4.1 mmol/L (3.5-5.1)
[2021-03-01] MEDS: PANTOPRAZOLE SODIUM 40 MG TABLET.DR PO SCH (06:18)
[2021-03-01] MEDS: BLOOD SUGAR DIAGNOSTIC 1 EACH STRIP VI SCH ×4 (06:31→20:25)
--- NOTE | 2021-03-01 07:30 | NUR ---
Patient received in bed, alert and oriented x4. On RA with no SOB or difficulties breathing. No acute distress noted at this time. Urinal at bedside within easy reach. Right hand IV patent with no redness or swelling noted. Patient states he is in pain and also requests it for morning physical therapy session because pain worsens with exercise. OxyIR administered as ordered. Back dressing C/D/I. No insulin coverage this AM for BS of 88. Will continue to monitor.
[2021-03-01] MEDS: OXYCODONE HCL 5 MG TABLET PO PRN (07:39)
[2021-03-01 07:58] VITALS: BP 123/60
[2021-03-01] MEDS: METFORMIN HCL 500 MG TABLET PO SCH ×2 (07:58→18:02)
[2021-03-01] MEDS: glyBURIDE 5 MG TABLET PO SCH ×2 (07:58→18:02)
[2021-03-01] MEDS: CARVEDILOL 3.125 MG TABLET PO SCH ×2 (07:58→18:03)
[2021-03-01] MEDS: GABAPENTIN 100 MG CAPSULE PO SCH ×3 (08:00→18:00)
[2021-03-01] MEDS: ASPIRIN 81 MG TAB.CHEW PO SCH (08:00)
[2021-03-01] MEDS: FINASTERIDE 5 MG TABLET PO SCH (08:00)
[2021-03-01] MEDS: DOCUSATE SODIUM 100 MG CAPSULE PO SCH ×2 (08:00→18:00)
[2021-03-01] MEDS: GLUCERNA SHAKE VANILLA 237 ML CAN PO SCH ×2 (08:03→17:00)
[2021-03-01 12:00] VITALS: BP 111/62
[2021-03-01] MEDS: INSULIN REGULAR, HUMAN 300 UNIT/3 ML VIAL SQ PRN ×2 (12:31→18:05)
[2021-03-01 16:39] VITALS: BP 114/58
[2021-03-01 20:00] VITALS: BP 101/52
[2021-03-01] MEDS: TAMSULOSIN HCL 0.4 MG CAP.SR.24H PO SCH (20:18)
--- NOTE | 2021-03-01 21:26 | NUR ---
Received pt on bed, alert and oriented x4. On RA with no respiratory distress noted. Right hand IV remains patent and intact, flushed with NS. No s/sx of infiltration. Due medications given and tolerated well. Blood sugar checked, 86. All needs attended. Call light placed within reach. Will continue to monitor.
[2021-03-01] MEDS: CEFTRIAXONE 2 G in IV DEXTROSE 5% 100 ML IV SCH (23:01)
[2021-03-02 04:00] VITALS: BP 113/58
[2021-03-02] MEDS: PANTOPRAZOLE SODIUM 40 MG TABLET.DR PO SCH (06:37)
[2021-03-02] MEDS: BLOOD SUGAR DIAGNOSTIC 1 EACH STRIP VI SCH ×4 (06:41→20:37)
--- NOTE | 2021-03-02 07:50 | NUR ---
Patient received in bed, alert and oriented x4. On RA with no SOB or difficulties breathing. No acute distress noted at this time. Urinal at bedside within easy reach. Right hand IV patent with no redness or swelling noted. Patient states he is in pain and also requests it for morning physical therapy session because pain worsens with exercise. OxyIR administered as ordered. Back dressing C/D/I. No insulin coverage this AM. Will continue to monitor.
[2021-03-02] MEDS: OXYCODONE HCL 5 MG TABLET PO PRN (07:53)
[2021-03-02] MEDS: CARVEDILOL 3.125 MG TABLET PO SCH ×2 (07:54→17:04)
[2021-03-02] MEDS: glyBURIDE 5 MG TABLET PO SCH ×2 (07:54→17:03)
[2021-03-02] MEDS: DOCUSATE SODIUM 100 MG CAPSULE PO SCH ×2 (08:01→17:03)
[2021-03-02] MEDS: GLUCERNA SHAKE VANILLA 237 ML CAN PO SCH ×2 (08:01→17:00)
[2021-03-02] MEDS: FINASTERIDE 5 MG TABLET PO SCH (08:01)
[2021-03-02] MEDS: ASPIRIN 81 MG TAB.CHEW PO SCH (08:01)
[2021-03-02] MEDS: GABAPENTIN 100 MG CAPSULE PO SCH ×3 (08:01→17:04)
[2021-03-02] MEDS: METFORMIN HCL 500 MG TABLET PO SCH ×2 (08:22→17:03)
[2021-03-02 08:56] VITALS: BP 128/59
[2021-03-02] MEDS: INSULIN REGULAR, HUMAN 300 UNIT/3 ML VIAL SQ PRN ×2 (12:13→17:05)
[2021-03-02 15:45] VITALS: BP 96/47
[2021-03-02 20:00] VITALS: BP 119/65
[2021-03-02] MEDS: TAMSULOSIN HCL 0.4 MG CAP.SR.24H PO SCH (20:38)
[2021-03-02] MEDS: CEFTRIAXONE 2 G in IV DEXTROSE 5% 100 ML IV SCH (23:47)
[2021-03-03] MEDS: TEMAZEPAM 15 MG CAPSULE PO PRN (00:04)
[2021-03-03 04:00] VITALS: BP 120/59
[2021-03-03] MEDS: PANTOPRAZOLE SODIUM 40 MG TABLET.DR PO SCH (06:08)
--- NOTE | 2021-03-03 06:16 | NUR ---
Patient c/o unable to sleep. Stated he hasn't slept for 3 nights.Restoril given with good effect. NO c/o pain through out the night. No SOB or difficulties breathing.Compliant with medication.Urinal at bedside within easy reach. Right hand IV patent.Infused IV ATB as ordered .No a/r noted. Back dressing clean and dry. Vss.All needs anticipated and met accordingly.
[2021-03-03] MEDS: BLOOD SUGAR DIAGNOSTIC 1 EACH STRIP VI SCH ×4 (06:39→20:34)
--- NOTE | 2021-03-03 07:20 | NUR ---
Received patient asleep in bed. On room air. No signs of acute distress. Call light within reach. Bed alarm on. Will continue to monitor.
[2021-03-03] MEDS: glyBURIDE 5 MG TABLET PO SCH ×2 (07:53→17:02)
[2021-03-03] MEDS: METFORMIN HCL 500 MG TABLET PO SCH ×2 (07:53→17:02)
[2021-03-03 08:00] VITALS: BP 110/54
[2021-03-03] MEDS: DOCUSATE SODIUM 100 MG CAPSULE PO SCH ×2 (08:29→16:27)
[2021-03-03] MEDS: ASPIRIN 81 MG TAB.CHEW PO SCH (08:30)
[2021-03-03] MEDS: GABAPENTIN 100 MG CAPSULE PO SCH ×3 (08:30→16:27)
[2021-03-03] MEDS: FINASTERIDE 5 MG TABLET PO SCH (08:30)
[2021-03-03] MEDS: CARVEDILOL 3.125 MG TABLET PO SCH ×2 (08:31→17:05)
[2021-03-03] MEDS: OXYCODONE HCL 5 MG TABLET PO PRN (08:31)
[2021-03-03] MEDS: GLUCERNA SHAKE VANILLA 237 ML CAN PO SCH ×2 (08:35→16:27)
[2021-03-03] MEDS: INSULIN REGULAR, HUMAN 300 UNIT/3 ML VIAL SQ PRN (11:54)
[2021-03-03 15:45] VITALS: BP 98/60
--- NOTE | 2021-03-03 18:24 | NUR ---
Patient resting in bed. AOx4. On room air. No signs of acute distress. Patient denies pain/ discomfort at this time. Patient compliant with medications and care. Patient participated with PT and OT. Call light within reach. Bed alarm on. Safety measures provided. Needs anticipated and met. Will endorse to incoming shift for continuity of care.
[2021-03-03 20:00] VITALS: BP 111/55
[2021-03-03] MEDS: TAMSULOSIN HCL 0.4 MG CAP.SR.24H PO SCH (20:30)
[2021-03-03] MEDS: BISACODYL 5 MG TABLET.DR PO PRN (20:31)
[2021-03-03] MEDS: INSULIN REGULAR, HUMAN 300 UNITS/3 ML VIAL SQ PRN (20:33)
[2021-03-03] MEDS: MAGNESIUM HYDROXIDE 30 ML LIQUID UDC PO PRN (23:06)
[2021-03-04] MEDS: CEFTRIAXONE 2 G in IV DEXTROSE 5% 100 ML IV SCH (01:05)
[2021-03-04 04:05] VITALS: BP 130/64
--- NOTE | 2021-03-04 04:07 | NUR ---
Resting in bed. Axox4, no acute distress noted. VSS. denies any pain at the moment. C/o of constipation PRN Dulcolax and MOM given, pt verbally expressed some relief. All due medication administered as ordered, Accu check done insulin administered as per sliding scale. Needs attended to. No significant changes. Call light with in reach. Will continue monitor.
[2021-03-04] MEDS: PANTOPRAZOLE SODIUM 40 MG TABLET.DR PO SCH (06:30)
[2021-03-04] MEDS: BLOOD SUGAR DIAGNOSTIC 1 EACH STRIP VI SCH ×4 (06:40→20:13)
[2021-03-04 07:40] VITALS: BP 131/57
[2021-03-04] MEDS: GABAPENTIN 100 MG CAPSULE PO SCH ×4 (08:21→17:08)
[2021-03-04] MEDS: glyBURIDE 5 MG TABLET PO SCH ×2 (08:21→17:09)
[2021-03-04] MEDS: FINASTERIDE 5 MG TABLET PO SCH (08:21)
[2021-03-04] MEDS: CARVEDILOL 3.125 MG TABLET PO SCH ×2 (08:22→17:08)
[2021-03-04] MEDS: DOCUSATE SODIUM 100 MG CAPSULE PO SCH ×2 (08:22→16:11)
[2021-03-04] MEDS: ASPIRIN 81 MG TAB.CHEW PO SCH (08:23)
[2021-03-04] MEDS: METFORMIN HCL 500 MG TABLET PO SCH ×3 (08:26→17:08)
[2021-03-04] MEDS: GLUCERNA SHAKE VANILLA 237 ML CAN PO SCH ×2 (08:26→17:08)
[2021-03-04] MEDS: BISACODYL 5 MG TABLET.DR PO PRN (09:54)
[2021-03-04] MEDS: MAGNESIUM HYDROXIDE 30 ML LIQUID UDC PO PRN (09:54)
[2021-03-04] MEDS: INSULIN REGULAR, HUMAN 300 UNIT/3 ML VIAL SQ PRN ×2 (11:47→16:13)
[2021-03-04] MEDS: MIRALAX 17 GM POWD.PACK PO SCH (11:55)
[2021-03-04 15:01] VITALS: BP 106/61
--- NOTE | 2021-03-04 15:20 | NUR ---
patient is alert, oriented x4, no sob, resp even nonlabored, skin warm and dry to touch, participated with PT, OT services, tolerated well, PICC line inserted by PICC line nurse for home health to infuse the antibiotic therapy until 03/28/21, flushed well. no acute distress noted.
[2021-03-04 20:00] VITALS: BP 97/55
--- NOTE | 2021-03-04 20:00 | NUR ---
Patient awake in bed upon start of shift. Denies any pain or discomfort. No resp. distress noted. vs wnl. Picc line noted to right upper arm, triple lumen, intact. Call light in reach. All needs attended. Will continue to monitor and assess.
[2021-03-04] MEDS: TAMSULOSIN HCL 0.4 MG CAP.SR.24H PO SCH (20:07)
[2021-03-05] MEDS: CEFTRIAXONE 2 G in IV DEXTROSE 5% 100 ML IV SCH ×2 (00:18→23:10)
[2021-03-05] MEDS: TEMAZEPAM 15 MG CAPSULE PO PRN (00:24)
[2021-03-05 04:00] VITALS: BP 113/55
[2021-03-05] MEDS: PANTOPRAZOLE SODIUM 40 MG TABLET.DR PO SCH (06:26)
[2021-03-05] MEDS: BLOOD SUGAR DIAGNOSTIC 1 EACH STRIP VI SCH ×4 (06:27→20:41)
[2021-03-05 06:34] LABS: HEMATOCRIT 30.1 % (36.7-47.1); MEAN CORPUSCULAR HEMOGLOBIN 27.8 uug (23.8-33.4); MEAN CORPUSCULAR VOLUME 83.1 fL (73.0-96.2); PLATELET COUNT (AUTO) 237 K/uL (152-348)
[2021-03-05 06:44] LABS: CREATININE 0.7 mg/dL (0.6-1.3); PHOSPHOROUS 3.1 mg/dL (2.5-4.9); POTASSIUM 4.1 mmol/L (3.5-5.1)
[2021-03-05] MEDS: TRAMADOL HCL 50 MG TABLET PO PRN (07:38)
[2021-03-05] MEDS: ASPIRIN 81 MG TAB.CHEW PO SCH (08:00)
[2021-03-05] MEDS: GABAPENTIN 100 MG CAPSULE PO SCH ×3 (08:01→16:42)
[2021-03-05] MEDS: DOCUSATE SODIUM 100 MG CAPSULE PO SCH ×2 (08:01→16:43)
[2021-03-05] MEDS: CARVEDILOL 3.125 MG TABLET PO SCH ×2 (08:01→16:43)
[2021-03-05] MEDS: METFORMIN HCL 500 MG TABLET PO SCH ×2 (08:01→16:45)
[2021-03-05] MEDS: glyBURIDE 5 MG TABLET PO SCH ×2 (08:01→16:42)
[2021-03-05] MEDS: FINASTERIDE 5 MG TABLET PO SCH (08:01)
[2021-03-05] MEDS: MIRALAX 17 GM POWD.PACK PO SCH (08:02)
[2021-03-05] MEDS: GLUCERNA SHAKE VANILLA 237 ML CAN PO SCH ×2 (08:02→16:44)
[2021-03-05 11:13] VITALS: BP 104/58
[2021-03-05] MEDS: INSULIN REGULAR, HUMAN 300 UNIT/3 ML VIAL SQ PRN ×2 (11:48→16:40)
[2021-03-05 15:58] VITALS: BP 107/47
[2021-03-05 20:00] VITALS: BP 115/61
[2021-03-05] MEDS: TAMSULOSIN HCL 0.4 MG CAP.SR.24H PO SCH (20:41)
[2021-03-06 04:00] VITALS: BP 124/52
[2021-03-06] MEDS: PANTOPRAZOLE SODIUM 40 MG TABLET.DR PO SCH (06:16)
[2021-03-06] MEDS: BLOOD SUGAR DIAGNOSTIC 1 EACH STRIP VI SCH ×2 (06:16→11:31)
--- NOTE | 2021-03-06 06:34 | NUR ---
FBS 71mg/dl. Patient denies s/s of hypoglycemia. [place] juice given to avoid hypoglycemia.
[2021-03-06 07:37] VITALS: BP 101/59
[2021-03-06 08:54] VITALS: BP 133/78
[2021-03-06] MEDS: CARVEDILOL 3.125 MG TABLET PO SCH (08:54)
[2021-03-06] MEDS: ASPIRIN 81 MG TAB.CHEW PO SCH (08:54)
[2021-03-06] MEDS: FINASTERIDE 5 MG TABLET PO SCH (08:54)
[2021-03-06] MEDS: METFORMIN HCL 500 MG TABLET PO SCH (08:54)
[2021-03-06] MEDS: DOCUSATE SODIUM 100 MG CAPSULE PO SCH (08:54)
[2021-03-06] MEDS: glyBURIDE 5 MG TABLET PO SCH (08:54)
[2021-03-06] MEDS: TRAMADOL HCL 50 MG TABLET PO PRN (08:55)
[2021-03-06] MEDS: GABAPENTIN 100 MG CAPSULE PO SCH (08:55)
[2021-03-06] MEDS: MIRALAX 17 GM POWD.PACK PO SCH (08:56)
[2021-03-06] MEDS: GLUCERNA SHAKE VANILLA 237 ML CAN PO SCH (08:56)
--- NOTE | 2021-03-06 12:15 | NUR ---
Patient to DC home , at bedside. Discharge instructions given, patient belongings were checked , body assessment done. Patient has no s/s of distress , no hypo/hyperglycemia noted during the shift, all due meds given per MD order. Right upper arm intact and patient will have to continue antibiotic IV home. Assisted patient to the lobby and assisted to their car via wheelchair. Reminded the patient to schedule a follow up sched to his PCP in 2 weeks. Prescribed medications given.
== END 2021-03-06 12:45 | disposition home health service (06) | DRG 539 ==
PROVIDERS: ADMIT Physical Medicine & Rehabilitation Pain Medicine; ATTEND Physical Medicine & Rehabilitation
PROC: 02HV33Z Insertion of Infusion Device into Superior Vena Cava, Percutaneous Approach (ICD-10-PCS; principal; 2021-03-04)
PROC: B548ZZA Ultrasonography of Superior Vena Cava, Guidance (ICD-10-PCS; 2021-03-04)
DX: M46.27 Osteomyelitis of vertebra, lumbosacral region (principal); G06.1 Intraspinal abscess and granuloma; I50.31 Acute diastolic (congestive) heart failure; A41.01 Sepsis due to Methicillin susceptible Staphylococcus aureus; E87.1 Hypo-osmolality and hyponatremia; M46.47 Discitis, unspecified, lumbosacral region; I11.0 Hypertensive heart disease with heart failure; K59.00 Constipation, unspecified; I25.10 Atherosclerotic heart disease of native coronary artery without angina pectoris; I25.5 Ischemic cardiomyopathy; Z95.1 Presence of aortocoronary bypass graft; E11.65 Type 2 diabetes mellitus with hyperglycemia; Z86.711 Personal history of pulmonary embolism; G89.29 Other chronic pain; M54.10 Radiculopathy, site unspecified; N31.9 Neuromuscular dysfunction of bladder, unspecified; Z87.440 Personal history of urinary (tract) infections; I87.2 Venous insufficiency (chronic) (peripheral); R26.9 Unspecified abnormalities of gait and mobility; R33.9 Retention of urine, unspecified
CPT/HCPCS: 36415; 36569; 71045; 83735; 84100; 85025; 97161; J0696; J1100; J1815; J7040; J7060

== ENCOUNTER 2021-05-28 09:02 | Outpatient (CLI) | payer MEDICARE ==
[~2021-05-28 09:02] MED LIST changes: +ACET-2154 PO; +ACET325T53 PO; +Blood Sugar Diagnostic VI; -CARV3.12 PO; +CARV6.25 PO; +CARV6.252 PO; +CEFT2FRO2 IV; +CEFT2VIA14 IV; +CYCL10TA9 PO; +CYCL7.5T17 PO; +DIAZ5DIS4 IV; +FINA5TAB11 PO; +GABA-532 PO; +HYDR-3974 PO; +HYDR-3980 PO; +HYDR-894 PO; +HYDR2SYR2 IJ; +INSU100V28 SQ; +KETO15VI5 IVP; +LACT10SO3 PO; +LACT10SO7 PO; +MAGN400O6 PO; +ONDA4TAB5 IVP; +PANT40TA2 PO; +POLY119P2 PO; +POLY17PO4 PO; +TAMS-3 PO; +TEMA15CA5 PO; +[UNRECOGNIZED DRUG - CODE] IVP
[2021-05-28 11:49] LABS: HEMATOCRIT 35.7 % (36.7-47.1); MEAN CORPUSCULAR HEMOGLOBIN 28.7 uug (23.8-33.4); MEAN CORPUSCULAR VOLUME 83.3 fL (73.0-96.2); PLATELET COUNT (AUTO) 269 K/uL (152-348)
[2021-05-28 12:14] LABS: BILIRUBIN,TOTAL 0.3 mg/dL (0.2-1.0); POTASSIUM 4.9 mmol/L (3.5-5.1); TOTAL PROTEIN, SERUM 7.8 g/dL (6.4-8.2)
== END 2021-05-28 23:59 | disposition home or self-care (01) ==
LOC: LAB 09:02
PROVIDERS: ATTEND Legal Medicine
DX: E11.9 Type 2 diabetes mellitus without complications (principal); D64.9 Anemia, unspecified; R53.1 Weakness
CPT/HCPCS: 36415; 83550; 85025; 85651; 86140

== ENCOUNTER 2021-11-04 09:05 | Outpatient (CLI) | payer MEDICARE ==
[2021-11-04 09:33] LABS: HEMATOCRIT 28.7 % (36.7-47.1); PLATELET COUNT (AUTO) 220 K/uL (152-348)
[2021-11-04 09:53] LABS: BILIRUBIN,TOTAL 0.3 mg/dL (0.2-1.0); CREATININE 1.3 mg/dL (0.6-1.3); TOTAL PROTEIN, SERUM 7.9 g/dL (6.4-8.2)
[2021-11-04 09:58] LABS: POTASSIUM 4.2 mmol/L (3.5-5.1)
--- NOTE | 2021-11-04 10:21 | NUR ---
REPORT OF AP/LAT X-RAY WAS FAXED TO DR. ROE @10:20 AM BY [employer] [facility] FAX CONFIRMATION COMPLETE.
== END 2021-11-04 23:59 | disposition home or self-care (01) ==
LOC: LAB 09:05
PROVIDERS: ATTEND Legal Medicine
DX: I51.7 Cardiomegaly (principal); J90 Pleural effusion, not elsewhere classified; J98.11 Atelectasis; J84.9 Interstitial pulmonary disease, unspecified; E11.9 Type 2 diabetes mellitus without complications; I50.9 Heart failure, unspecified; D64.9 Anemia, unspecified; Z95.2 Presence of prosthetic heart valve
CPT/HCPCS: 36415; 71046; 85025

== ENCOUNTER 2022-07-31 15:12 | Outpatient (CLI) | payer MEDICARE | END 2022-07-31 23:59 | disposition home or self-care (01) | LOC: RAD 15:12 | PROVIDERS: ATTEND Legal Medicine | DX: I51.7 Cardiomegaly (principal); J98.11 Atelectasis; R06.02 Shortness of breath; J90 Pleural effusion, not elsewhere classified | CPT/HCPCS: 71046 ==

== ENCOUNTER 2022-10-28 07:50 | Outpatient (CLI) | payer MEDICARE | END 2022-10-28 23:59 | disposition home or self-care (01) | LOC: LAB 07:50 | PROVIDERS: ATTEND Legal Medicine | DX: R73.9 Hyperglycemia, unspecified (principal) ==

== ENCOUNTER 2024-02-15 11:40 | Inpatient (IN) | payer MEDICARE ==
[~2024-02-15] VITALS: Ht 185.4 cm; Wt 61.2 kg
[2024-02-15] MEDS: VANCOMYCIN IV 1,000 MG in IV DEXTROSE 5% 250 ML IV ONE ×2 (12:00→23:11)
[2024-02-15 12:21] LABS: BASOPHILS # (AUTO) 0.1 K/UL (0.0-0.2); BASOPHILS % (AUTO) 0.7 % (0.0-2.0); EOSINOPHILS # (AUTO) 0.1 K/uL (0.0-0.7); EOSINOPHILS % (AUTO) 1.7 % (0.0-7.0); HEMATOCRIT 36.3 % (36.7-47.1); LYMPHOCYTES # (AUTO) 0.8 K/uL (0.8-4.8); LYMPHOCYTES % (AUTO) 8.9 % (20.5-51.5); MEAN CORPUSCULAR HEMOGLOBIN 27.3 uug (23.8-33.4); MEAN CORPUSCULAR HGB CONC 33 g/dL (32.5-36.3); MEAN CORPUSCULAR VOLUME 82.9 fL (73.0-96.2); MONOCYTES # (AUTO) 0.5 K/uL (0.1-1.30); NEUTROPHILS # (AUTO) 7.1 K/uL (1.8-8.9); NEUTROPHILS % (AUTO) 82.7 % (38.5-71.5); PLATELET COUNT (AUTO) 254 K/uL (152-348); RED BLOOD CELL COUNT(AUTO) 4.38 MIL/uL (4.06-5.63); RED CELL DISTRIBUTION WIDTH 15.1 % (12.1-16.2); WHITE BLOOD COUNT (AUTO) 8.6 K/uL (3.6-10.2)
[2024-02-15 12:31] LABS: DIFFERENTIAL COMMENT 1
[2024-02-15] MEDS ORDERED: PIPERACILLIN/TAZOBACTAM/D5W 50 ML IV ONE ×3 (12:31→22:05)
[2024-02-15] MEDS ORDERED: VANCOMYCIN IV 200 ML ONE ×2 (12:31→22:06)
[2024-02-15 12:32] LABS: CALCIUM 9.2 mg/dL (8.5-10.1); CARBON DIOXIDE 26 mmol/L (21-32); CHLORIDE 100 mmol/L (98-107); CREATININE 1.3 mg/dL (0.6-1.3); GLUCOSE 180 mg/dL (74-106); SODIUM SERUM 135 mmol/L (136-145); UREA NITROGEN, BLOOD 28 mg/dL (7-18)
[2024-02-15] MEDS: PIPERACILLIN SODIUM/TAZOBACTAM 3.375 G in IV DEXTROSE 5% 50 ML IV ONE ×2 (12:32→22:19)
[2024-02-15] MEDS: IV NORMAL SALINE 1000 ML BAG IV ONE (12:32)
[2024-02-15 12:45] LABS: ALANINE AMINOTRANSFERASE 16 U/L (16-63); ALBUMIN 3.7 g/dL (3.4-5.0); ALKALINE PHOSPHATASE 124 U/L (50-136); ASPARTATE AMINOTRANSFERASE 11 U/L (15-37); BILIRUBIN,DIRECT 0.2 mg/dL (0.0-0.2); BILIRUBIN,TOTAL 0.6 mg/dL (0.2-1.0); TOTAL PROTEIN, SERUM 8.2 g/dL (6.4-8.2)
[2024-02-15 13:22] LABS: NT-PRO BNP 1193 pg/mL (0-125)
[2024-02-15 14:44] LABS: *BILIRUBIN,URIN NEGATIVE (NEGATIVE); *BLOOD, URINE NEGATIVE (NEGATIVE); *CLARITY,URINE CLEAR (CLEAR); *COLOR,URINE YELLOW (YELLOW); *KETONES,URINE NEGATIVE (NEGATIVE); *PROTEIN,URINE NEGATIVE (NEGATIVE); *UROBILINOGEN,URINE 0.2 E.U./dl (NORMAL); LEUKOCYTE ESTERASE ,URINE NEGATIVE (NEGATIVE); NITRITE, URINE NEGATIVE (NEGATIVE); PH,URINE 6.5 (5.0-8.0); UGLUCOSE NEGATIVE (NEGATIVE)
[2024-02-15] MEDS ORDERED: GLIP1TAB6 PO (15:56)
[2024-02-15] MEDS ORDERED: RIVA15TA2 PO (15:56)
[2024-02-15] MEDS ORDERED: CHOL10005 PO (15:56)
[2024-02-15] MEDS ORDERED: METO-356 PO (15:56)
[2024-02-15] MEDS ORDERED: FURO40TA5 PO (15:56)
[2024-02-15] MEDS ORDERED: ENOXAPARIN SODIUM 100 MG/ML DISP.SYRIN SQ ONE (17:45)
[2024-02-15] MEDS: MAGNESIUM SULFATE/D5W 100 ML IV SCH (18:02)
[2024-02-15] MEDS ORDERED: MAGNESIUM SULFATE/D5W 100 ML ONE ×2 (18:03→19:02)
[2024-02-15] MEDS ORDERED: HYDROCODONE/APAP 5-325MG TABLET PO PRN (20:45)
[2024-02-15] MEDS ORDERED: DEXTROSE 50% 50 ML DISP.SYRIN IV PRN (20:45)
[2024-02-15] MEDS ORDERED: ACETAMINOPHEN 325 MG TABLET PO PRN (20:45)
[2024-02-15] MEDS ORDERED: ACETAMINOPHEN 325 MG TABLET-SA PATIENTS-PAIN ONLY PO PRN (20:45)
[2024-02-15] MEDS ORDERED: ONDANSETRON 4 MG/2 ML VIAL IV PRN (20:45)
[2024-02-15] MEDS ORDERED: ZOLPIDEM 5 MG TABLET PO PRN (20:45)
[2024-02-15] MEDS ORDERED: MAGNESIUM HYDROXIDE 30 ML LIQUID UDC PO PRN (20:45)
[2024-02-15] MEDS: DOCUSATE SODIUM 100 MG CAPSULE PO SCH (21:37)
[2024-02-15] MEDS: BLOOD SUGAR DIAGNOSTIC 1 EACH STRIP VI SCH (21:37)
[2024-02-15] MEDS: INSULIN REGULAR, HUMAN 1000 UNIT/10 ML VIAL SQ PRN (21:38)
[2024-02-15] MEDS ORDERED: PIPERACILLIN SODIUM/TAZOBACTAM 3.375 G in IV DEXTROSE 5% 50 ML IV SCH (22:00)
[2024-02-16 04:00] VITALS: BP 112/54; TEMP 98.1; O2SAT 98
[2024-02-16] MEDS: PIPERACILLIN SODIUM/TAZOBACTAM 3.375 G in IV DEXTROSE 5% 50 ML IV ONE (04:27)
[2024-02-16 05:35] VITALS: BP 123/52; TEMP 97.8; O2SAT 98
[2024-02-16] MEDS: PANTOPRAZOLE SODIUM 40 MG TABLET.DR PO SCH (06:25)
[2024-02-16 06:53] LABS: BASOPHILS # (AUTO) 0.1 K/UL (0.0-0.2); BASOPHILS % (AUTO) 0.5 % (0.0-2.0); EOSINOPHILS # (AUTO) 0.3 K/uL (0.0-0.7); EOSINOPHILS % (AUTO) 2.4 % (0.0-7.0); HEMATOCRIT 30.2 % (36.7-47.1); LYMPHOCYTES # (AUTO) 0.7 K/uL (0.8-4.8); LYMPHOCYTES % (AUTO) 6.4 % (20.5-51.5); MEAN CORPUSCULAR HEMOGLOBIN 27.6 uug (23.8-33.4); MEAN CORPUSCULAR HGB CONC 33 g/dL (32.5-36.3); MEAN CORPUSCULAR VOLUME 83.2 fL (73.0-96.2); MONOCYTES # (AUTO) 0.4 K/uL (0.1-1.30); MONOCYTES % (AUTO) 3.5 % (0.0-11.0); NEUTROPHILS % (AUTO) 87.2 % (38.5-71.5); PLATELET COUNT (AUTO) 198 K/uL (152-348); RED BLOOD CELL COUNT(AUTO) 3.63 MIL/uL (4.06-5.63); WHITE BLOOD COUNT (AUTO) 10.4 K/uL (3.6-10.2)
[2024-02-16 07:01] LABS: DIFFERENTIAL COMMENT 1
[2024-02-16 07:07] LABS: ALANINE AMINOTRANSFERASE 15 U/L (16-63); ALBUMIN 2.8 g/dL (3.4-5.0); ALKALINE PHOSPHATASE 90 U/L (50-136); ASPARTATE AMINOTRANSFERASE 8 U/L (15-37); BILIRUBIN,TOTAL 0.8 mg/dL (0.2-1.0); CALCIUM 8.5 mg/dL (8.5-10.1); CARBON DIOXIDE 27 mmol/L (21-32); CHLORIDE 103 mmol/L (98-107); CHOLESTEROL 110 mg/dL (<200); CREATININE 1.2 mg/dL (0.6-1.3); GLUCOSE 119 mg/dL (74-106); HDL CHOLESTEROL 44 mg/dL (40-60); MAGNESIUM 2.4 mg/dL (1.8-2.4); PHOSPHOROUS 2.7 mg/dL (2.5-4.9); POTASSIUM 3.7 mmol/L (3.5-5.1); SODIUM SERUM 137 mmol/L (136-145); TOTAL PROTEIN, SERUM 6.4 g/dL (6.4-8.2); TRIGLYCERIDES 41 MG/DL (30-150); UREA NITROGEN, BLOOD 24 mg/dL (7-18)
[2024-02-16 07:16] LABS: THYROID STIMULATING HORMONE 2.722 mIU/mL (0.358-3.740)
[2024-02-16 07:27] VITALS: BP 111/58; TEMP 98.2; O2SAT 98
[2024-02-16 07:35] LABS: IRON, SERUM 22 ug/dL (50-175)
[2024-02-16] MEDS: CHOLECALCIFEROL 1,000 UNIT TABLET PO SCH (08:50)
[2024-02-16] MEDS: FUROSEMIDE 20 MG TABLET PO SCH (08:50)
[2024-02-16] MEDS: METOPROLOL SUCCINATE XL 25 MG TAB.SR.24H PO SCH (08:51)
[2024-02-16] MEDS ORDERED: METFORMIN HCL 500 MG TABLET PO SCH (09:00)
[2024-02-16] MEDS ORDERED: glipiZIDE 5 MG TABLET PO SCH (09:00)
[2024-02-16] MEDS ORDERED: METOPROLOL SUCCINATE XL 25 MG TAB.SR.24H PO SCH ×2 (09:00)
[2024-02-16] MEDS ORDERED: FUROSEMIDE 40 MG TABLET PO SCH ×2 (09:00)
[2024-02-16] MEDS ORDERED: ASPIRIN EC 81 MG TABLET.DR PO SCH (09:00)
[2024-02-16] MEDS ORDERED: Medication Not On Formulary EA (Glipizide/Metformin Hcl (Glipizide-Metformin 5-500 Mg) 1 PO SCH (09:00)
[2024-02-16] MEDS: PIPERACILLIN SODIUM/TAZOBACTAM 3.375 G in IV DEXTROSE 5% 50 ML IV SCH (11:35)
[2024-02-16 11:48] VITALS: BP 105/56; TEMP 97.7; O2SAT 99
[2024-02-16] MEDS: VANCOMYCIN HCL 1,500 MG in IV DEXTROSE 5% 500 ML IV SCH (12:11)
[2024-02-16] MEDS: MUPIROCIN 2% OINT 22 GM TUBE TP SCH (12:15)
[2024-02-16 15:59] VITALS: BP 113/59; TEMP 97.8; O2SAT 97
[2024-02-16] MEDS: RIVAROXABAN 15 MG TABLET PO SCH (16:25)
[2024-02-16 20:00] VITALS: BP 117/54; TEMP 97.6; O2SAT 98
[2024-02-17] VITALS: BP 114/55; TEMP 97.9; O2SAT 97
[2024-02-17 04:00] VITALS: BP 109/55; TEMP 97.9; O2SAT 98
[2024-02-17 07:59] VITALS: BP 119/53; TEMP 97.9; O2SAT 99
[2024-02-17 11:50] VITALS: BP 111/55; TEMP 97.8; O2SAT 99
[2024-02-17] MEDS ORDERED: CEFTRIAXONE 2 G VIAL IM SCH (14:45)
[2024-02-17 15:52] VITALS: BP 114/45; TEMP 97.8; O2SAT 99
[2024-02-17] MEDS: CEFTRIAXONE 2 G in IV DEXTROSE 5% 100 ML IV SCH (17:04)
[2024-02-17 20:00] VITALS: BP 120/55; TEMP 97.5; O2SAT 98
[2024-02-18 06:45] LABS: CALCIUM 9.1 mg/dL (8.5-10.1); CARBON DIOXIDE 26 mmol/L (21-32); CHLORIDE 100 mmol/L (98-107); CREATININE 1.4 mg/dL (0.6-1.3); GLUCOSE 201 mg/dL (74-106); MAGNESIUM 2.3 mg/dL (1.8-2.4); PHOSPHOROUS 3.2 mg/dL (2.5-4.9); POTASSIUM 3.9 mmol/L (3.5-5.1); SODIUM SERUM 134 mmol/L (136-145); UREA NITROGEN, BLOOD 19 mg/dL (7-18)
[2024-02-18 06:50] VITALS: BP 125/68; TEMP 97.8; O2SAT 96
[2024-02-18] MEDS ORDERED: LEVO500T90 PO (10:40)
[2024-02-18 11:35] VITALS: BP 133/57; TEMP 98.4; O2SAT 99
== END 2024-02-18 11:45 | disposition home health service (06) | DRG 299 ==
LOC: ER 11:40 → TELE3 19:22 → MEDSURG3 02-17 09:31
PROVIDERS: ADMIT Internal Medicine; ATTEND Internal Medicine
DX: E11.51 Type 2 diabetes mellitus with diabetic peripheral angiopathy without gangrene (principal); N17.0 Acute kidney failure with tubular necrosis; I70.235 Atherosclerosis of native arteries of right leg with ulceration of other part of foot; L97.512 Non-pressure chronic ulcer of other part of right foot with fat layer exposed; I13.0 Hypertensive heart and chronic kidney disease with heart failure and stage 1 through stage 4 chronic kidney disease, or unspecified chronic kidney disease; I45.2 Bifascicular block; I48.20 Chronic atrial fibrillation, unspecified; J98.11 Atelectasis; I50.42 Chronic combined systolic (congestive) and diastolic (congestive) heart failure; E11.621 Type 2 diabetes mellitus with foot ulcer; E11.42 Type 2 diabetes mellitus with diabetic polyneuropathy; L03.031 Cellulitis of right toe; N18.9 Chronic kidney disease, unspecified; E11.22 Type 2 diabetes mellitus with diabetic chronic kidney disease; N40.0 Benign prostatic hyperplasia without lower urinary tract symptoms; D64.9 Anemia, unspecified; E78.5 Hyperlipidemia, unspecified; M20.42 Other hammer toe(s) (acquired), left foot; M20.41 Other hammer toe(s) (acquired), right foot; I25.5 Ischemic cardiomyopathy; I25.10 Atherosclerotic heart disease of native coronary artery without angina pectoris; I48.0 Paroxysmal atrial fibrillation; G89.29 Other chronic pain; Z86.711 Personal history of pulmonary embolism; Z79.01 Long term (current) use of anticoagulants; Z86.73 Personal history of transient ischemic attack (TIA), and cerebral infarction without residual deficits; Z95.1 Presence of aortocoronary bypass graft; Z95.3 Presence of xenogenic heart valve; Z79.84 Long term (current) use of oral hypoglycemic drugs; Z79.4 Long term (current) use of insulin; Z74.09 Other reduced mobility; Z86.61 Personal history of infections of the central nervous system
CPT/HCPCS: 36415; 71045; 73660; 83550; 83605; 83735; 84100; 84443; 84484; 85025; 85651; 85730; 86140; 87040; 93005; G0378; J0696; J1815; J2543; J3370; J3371; J3475; J7040; J7050; J7060

== ENCOUNTER 2024-02-23 00:23 | Emergency (ER) | payer MEDICARE ==
[~2024-02-23] VITALS: Ht 185.4 cm; Wt 90.7 kg
[~2024-02-23 00:23] MED LIST changes: -ACET-2154 PO; -ASPI81TA31 PO; -CARV6.25 PO; -CARV6.252 PO; -CEFT2FRO2 IV; -CEFT2VIA14 IV; +CHOL10005 PO; -CYCL10TA9 PO; -CYCL7.5T17 PO; -DIAZ5DIS4 IV; -FINA5TAB11 PO; +FURO40TA5 PO; -GABA-532 PO; +GLIP1TAB6 PO; -GLYB1TAB3 PO; -HYDR-3974 PO; -HYDR-3980 PO; -HYDR-894 PO; -HYDR2SYR2 IJ; -IBUP-1953 PO; -INSU100V28 SQ; -KETO15VI5 IVP; -LACT10SO3 PO; -LACT10SO7 PO; +LEVO500T90 PO; -MAGN400O6 PO; +METO-356 PO; -ONDA4TAB5 IVP; -PANT40TA2 PO; -POLY119P2 PO; -POLY17PO4 PO; +RIVA15TA2 PO; -TAMS-3 PO; -TEMA15CA5 PO; -[UNRECOGNIZED DRUG - CODE] IVP
[2024-02-23] MEDS ORDERED: LIDOCAINE 1%-EPI 1:100,000 20 ML VIAL ONE (00:28)
[2024-02-23] MEDS: LIDOCAINE 1%-EPI 1:100,000 20 ML VIAL IJ ONE (00:38)
[2024-02-23 01:27] VITALS: BP 124/68; TEMP 98.2; O2SAT 98
== END 2024-02-23 01:27 | disposition home or self-care (01) ==
LOC: ER 00:27
DX: T82.838A Hemorrhage due to vascular prosthetic devices, implants and grafts, initial encounter (principal); I25.10 Atherosclerotic heart disease of native coronary artery without angina pectoris; E11.9 Type 2 diabetes mellitus without complications; Z79.1 Long term (current) use of non-steroidal anti-inflammatories (NSAID); Z79.899 Other long term (current) drug therapy; Z98.890 Other specified postprocedural states; Z88.2 Allergy status to sulfonamides; Y92.89 Other specified places as the place of occurrence of the external cause
CPT/HCPCS: 99282; J3490; A4606; A4663

== ENCOUNTER 2024-02-26 16:25 | Emergency (ER) | payer MEDICARE ==
--- NOTE | 2024-02-26 16:30 | NUR ---
Pt is here for outpatient labs, pt was registered to ER by ER admitting by mistake.
== END 2024-02-26 16:33 | disposition left against medical advice (07) ==
LOC: ER 16:26
DX: Z13.89 Encounter for screening for other disorder (principal); Z53.21 Procedure and treatment not carried out due to patient leaving prior to being seen by health care provider

== ENCOUNTER 2024-02-27 12:20 | Outpatient (CLI) | payer MEDICARE ==
[2024-02-27 12:47] LABS: CALCIUM 9.2 mg/dL (8.5-10.1); CARBON DIOXIDE 28 mmol/L (21-32); CHLORIDE 103 mmol/L (98-107); CREATININE 1.3 mg/dL (0.6-1.3); GLUCOSE 173 mg/dL (74-106); POTASSIUM 4.3 mmol/L (3.5-5.1); SODIUM SERUM 136 mmol/L (136-145); UREA NITROGEN, BLOOD 28 mg/dL (7-18)
== END 2024-02-27 23:59 | disposition home or self-care (01) ==
LOC: LAB 12:20
PROVIDERS: ATTEND Emergency Medicine
DX: E11.9 Type 2 diabetes mellitus without complications (principal)
CPT/HCPCS: 36415